=== PATIENT | female | born 1935 | race Caucasian/White ===

== ENCOUNTER 2024-01-06 18:44 | Inpatient (IN) | payer MEDICARE, OTHER, SELFPAY ==
[2024-01-06] VITALS (15 sets, daily range): BP systolic 148–194; BP diastolic 72–95; PULSE 82–97; RESP 14–24; TEMP 36–36.6; O2SAT 88–96; BMI 19.0
--- NOTE | 2024-01-06 18:59 | ED.GENADULT ---
HPI - General Adult General Chief complaint: Shortness of Breath/Dyspnea Stated complaint: SOB, Failure to thrive Time Seen by Provider: 01/06/24 18:44 History of Present Illness HPI narrative: 88-year-old female with history of hypertension, AFib on Eliquis presents by EMS from home for generalized weakness and not take care for self. Patient has had somewhat complicated medical course recently. On 11/25 patient was transferred from an outside hospital to [facility] for ground level fall with subdural hemorrhage. Patient was managed non operatively. Hospital course complicated by COVID and bacterial pneumonia requiring high-flow nasal cannula. At some point during her hospital stay patient also had left upper lobe segmental PE and she was transitioned from home Eliquis to Lovenox. Swallow study at outside hospital notable for silent aspiration. Patient did not tolerate NG tube and after goals of care discussion with and palliative Care, it was decided that p.o. diet despite risk of aspiration was more in line with the patient's goals of care. At the end of patient's hospital stay it was determined that patient would benefit most from inpatient rehabilitation, however after discussion with patient and her they refused inpatient care and wanted to go home, stating that she would have full-time support from family and neighbors. Yesterday patient had another ground level fall and was taken to [facility] emergency department. At that time patient was found to have fracture of L2 anterosuperior endplate and acute fractures of 9th and 10th rib fractures, however patient had no pain in the location of the rib fractures. Per review of [facility] ER note patient again declined rehab and hospitalization and requested to go home with home health.. Patient did have saturations of 93-94% in the hospital. Today, home health came to evaluate the patient in deemed her living situation to be unsafe. 911 was called and patient brought to [facility] for assessment. Patient is alert, able to answer orientation questions, but does seem to have confusion and extremely poor insight into her current situation. Related Data Home Medications Medication Instructions Recorded Confirmed clonazepam 1 mg tablet 1 mg PO HS ##0 02/27/17 01/06/24 potassium chloride 10 mEq 10 meq PO BID ##0 02/27/17 01/06/24 tablet,extended release (Klor-Con) amiodarone 200 mg tablet 200 mg PO Q OTHER DAY 01/06/24 01/06/24 amlodipine 10 mg tablet 10 mg PO DAILY 01/06/24 01/06/24 apixaban 5 mg tablet (Eliquis) 5 mg PO BID 01/06/24 01/06/24 fluoxetine 20 mg capsule 20 mg PO DAILY 01/06/24 01/06/24 levothyroxine 100 mcg tablet 100 mcg PO DAILY 01/06/24 01/06/24 metoprolol succinate 50 mg 50 mg PO DAILY 01/06/24 01/06/24 tablet,extended release 24 hr Allergies Allergy/AdvReac Type Severity Reaction Status Date / Time adhesive tape [ADHESIVE TAPE] Allergy Intermediate ITCHY Verified 01/07/24 01:56 PAPER/SILK TAPE OK Latex, Natural Rubber Allergy Intermediate PT UNSURE Verified 01/07/24 01:56 [LATEX, NATURAL RUBBER] MAY CAUSE ITCHING, RASH celecoxib [From CELEBREX] AdvReac Severe FLU-LIKE Verified 01/07/24 01:56 SYMPTOMS Patient History Medical History (Updated 01/07/24 @ 02:03 by Geronimo Wan MD) Anxiety and depression Impaired mobility and activities of daily living PAF (paroxysmal atrial fibrillation) Hypothyroidism Social History household members: spouse Smoking Status: Never smoker Exam Initial Vital Signs Initial Vital Signs: Vital Signs Temperature 97.8 F 01/06/24 18:45 Pulse Rate 97 H 01/06/24 18:45 Respiratory Rate 18 01/06/24 18:45 Blood Pressure 194/95 H 01/06/24 18:45 Pulse Oximetry 88 L 01/06/24 18:45 Oxygen Delivery Method Room Air 01/06/24 18:45 Const: Awake, alert, debilitated, frail, appears chronically unwell Cardiac: regular rate, regular rhythm RESP: unlabored, coarse breath sounds bilateral bases GI: Soft, nontender, nondistended, no rebound, no guarding MSK: No edema, full range of motion, pulses equal Skin: Warm, Dry, intact, no rashes Neuro: AO x2, CN II-XII grossly intact, moves all extremities Course Orders Ordered: Acetaminophen (Acetaminophen 325 Mg Tablet) 650 mg PO Q6H PRN PRN Reason: Fever/Mild Pain (1-3) Last Admin: 01/07/24 08:35 Dose: 650 mg Documented By: NAWAF Amiodarone HCl (Amiodarone 200 Mg Tablet) 200 mg PO Q48H [facility] Last Admin: 01/07/24 10:01 Dose: 200 mg Documented By: NAWAF Amlodipine Besylate (Amlodipine 5 Mg Tablet) 10 mg PO DAILY [facility] Last Admin: 01/07/24 08:36 Dose: 10 mg Documented By: NAWAF Apixaban (Apixaban 5 Mg Tablet) 2.5 mg PO BID [facility] Clonazepam (Clonazepam 0.5 Mg Tablet) 1 mg PO BEDTIME [facility] Last Admin: 01/07/24 02:54 Dose: Not Given Documented By: ELENA Fluoxetine HCl (Fluoxetine 20 Mg Capsule) 20 mg PO DAILY [facility] Last Admin: 01/07/24 08:36 Dose: 20 mg Documented By: NAWAF Piperacillin Sod/Tazobactam (Sod 3.375 gm/ Sodium Chloride) 100 mls @ 25 mls/hr IV Q8H [facility] Last Admin: 01/07/24 17:38 Dose: 25 mls/hr Documented By: NAWAF Levothyroxine Sodium (Levothyroxine 100 Mcg Tablet) 100 mcg PO DAILY@0600 [facility] Metoprolol Succinate (Metoprolol Er 50 Mg Tablet) 50 mg PO DAILY [facility] Last Admin: 01/07/24 08:36 Dose: 50 mg Documented By: NAWAF Naloxone HCl (Naloxone 0.4 Mg/Ml Vial) 0.2 mg IV Q2MIN PRN PRN Reason: Opiate Reversal Oxycodone HCl (Oxycodone Ir 5 Mg Tablet) 5 mg PO Q4HR PRN PRN Reason: Pain, Moderate (4-6) Last Admin: 01/07/24 13:39 Dose: 5 mg Documented By: LATANYA Discontinued Medications Apixaban (Apixaban 5 Mg Tablet) 5 mg PO BID [facility] Last Admin: 01/07/24 08:35 Dose: 5 mg Documented By: NAWAF Sodium Chloride (Normal Saline 0.9%) 1,000 mls @ 1,000 mls/hr IV BOLUS ONE Stop: 01/06/24 19:57 Last Infusion: 01/06/24 20:27 Dose: Infused Documented By: Admin: 01/06/24 19:12 Dose: 1,000 mls/hr Documented By: ANDREZ Ceftriaxone Sodium 1,000 mg/ (Sodium Chloride) 100 mls @ 200 mls/hr IV NOW ONE Stop: 01/06/24 19:28 Last Infusion: 01/06/24 20:27 Dose: Infused Documented By: Admin: 01/06/24 19:54 Dose: 200 mls/hr Documented By: ANDREZ Azithromycin 500 mg/ Dextrose 250 mls @ 250 mls/hr IV NOW ONE Stop: 01/06/24 19:28 Last Infusion: 01/06/24 21:45 Dose: Infused Documented By: Admin: 01/06/24 20:32 Dose: 250 mls/hr Documented By: ANDREZ Azithromycin 500 mg/ Dextrose 250 mls @ 250 mls/hr IV Q24H ROBERT Ceftriaxone Sodium 1,000 mg/ (Sodium Chloride) 100 mls @ 200 mls/hr IV Q24H ROBERT Piperacillin Sod/Tazobactam (Sod 4.5 gm/ Sodium Chloride) 100 mls @ 200 mls/hr IV NOW ONE Stop: 01/07/24 13:29 Last Admin: 01/07/24 13:39 Dose: 200 mls/hr Documented By: LATANYA Levothyroxine Sodium (Levothyroxine 100 Mcg Tablet) 100 mcg PO DAILY [facility] Last Admin: 01/07/24 08:36 Dose: 100 mcg Documented By: NAWAF Oxycodone HCl (Oxycodone Ir 5 Mg Tablet) 5 mg PO NOW ONE Stop: 01/06/24 21:55 Last Admin: 01/06/24 22:05 Dose: 5 mg Documented By: ANDREZ Vital Signs Vital signs: Vital Signs - 8 hr 01/06/24 18:45 01/06/24 18:46 01/06/24 18:49 Temperature 97.8 F Pulse Rate 97 H 96 H Respiratory Rate 18 Blood Pressure 194/95 H 194/95 H Pulse Oximetry 88 L 91 Oxygen Delivery Method Room Air Oxygen Flow Rate 01/06/24 18:49 01/06/24 18:51 01/06/24 18:51 Temperature Pulse Rate 97 H 96 H Respiratory Rate Blood Pressure 185/94 H Pulse Oximetry 90 L 93 Oxygen Delivery Method Nasal Cannula Oxygen Flow Rate 2 01/06/24 19:00 01/06/24 19:30 01/06/24 20:00 Temperature Pulse Rate 90 87 88 Respiratory Rate 14 15 24 Blood Pressure Pulse Oximetry 93 96 93 Oxygen Delivery Method Nasal Cannula Nasal Cannula Nasal Cannula Oxygen Flow Rate 2 2 2 01/06/24 20:05 01/06/24 20:05 01/06/24 20:30 Temperature Pulse Rate 86 Respiratory Rate 20 Blood Pressure 181/84 H 166/81 H Pulse Oximetry 93 Oxygen Delivery Method Nasal Cannula Oxygen Flow Rate 2 01/06/24 20:30 01/06/24 21:00 01/06/24 21:00 Temperature Pulse Rate 91 H 93 H Respiratory Rate 18 22 Blood Pressure 158/74 H Pulse Oximetry 95 95 Oxygen Delivery Method Nasal Cannula Nasal Cannula Oxygen Flow Rate 2 2 Medical Decision Making Lab Data 01/07/24 03:35 01/07/24 03:35 Labs: Lab Results 01/06/24 Range/Units 19:07 WBC 14.3 H (4.5-11.0) X10^3/uL RBC 4.40 (4.0-5.2) X10^6/uL Hgb 13.4 (12.0-16.0) g/dL Hct 40.5 (36-46) % MCV 92.1 (80-100) fL MCH 30.5 (26-34) PG MCHC 33.1 (30-36) % RDW 16.1 H (11.6-14.8) % Plt Count 257 (150-400) X10^3/uL Neut % (Auto) 87.6 H (50-75) % Lymph % (Auto) 6.2 L (25-40) % [place] % (Auto) 4.8 (3-14) % Eos % (Auto) 0.9 L (2-4) % Baso % (Auto) 0.5 (0-2) % Neut # (Auto) 81619 H (4745-2656) /uL Lymph # (Auto) 900 L (3167-4464) /uL [place] # (Auto) 700 (0-900) /uL Eos # (Auto) 100 (0-450) /uL Baso # (Auto) 100 (0-100) /uL PT 12.4 (9.4-12.5) SECONDS INR 1.1 (0.9-1.3) Sodium 134 L (137-145) mmol/L Potassium 4.3 (3.4-5.1) mmol/L Chloride 101 (98-107) mmol/L Carbon Dioxide 26 (22-32) mmol/L BUN 16 (7-17) mg/dL Creatinine 0.64 (0.52-1.04) mg/dL Estimated GFR > 60 (>60) mL/min BUN/Creatinine Ratio 25.0 H (6-22) Glucose 96 (80-110) mg/dL Calcium 8.8 (8.4-10.2) mg/dL Total Bilirubin 0.6 (0.2-1.3) mg/dL AST 28 (14-36) IU/L ALT 36 H (<35) IU/L Alkaline Phosphatase 63 (38-126) U/L Total Creatine Kinase 27 L (30-135) U/L Troponin I < 0.012 (0.01-0.034) ng/mL NT-Pro-B Natriuret Pep 396 (<450) pg/mL Total Protein 6.5 (6.3-8.2) g/dL Albumin 3.5 (3.5-5.0) g/dL Globulin 3.0 (1.7-4.1) g/dL Albumin/Globulin Ratio 1.2 (1.0-2.8) Procalcitonin 0.083 (<0.5) ng/mL Imaging Data Chest x-ray: Radiologist's Impression: PROCEDURE: XR CHEST 1V INDICATIONS: low O2 sats TECHNIQUE: One view of the chest was acquired. COMPARISON: [facility], CHEST 2 VIEW, 04/01/2017, 16:20. [facility], CHEST 1 VIEW, 03/19/2017, 13:37. FINDINGS: Surgical changes and devices: ACDF. Lungs and pleura: Prominent lung volumes. Coarsened lung markings. No silhouetting. No pleural effusions or pneumothorax. Mediastinum: Mediastinal contours appear normal. Heart size is normal. Bones and chest wall: No suspicious bony lesions. Overlying soft tissues appear unremarkable. IMPRESSION: Coarsened lung markings. Prominent lung volumes. Differential diagnosis including fibrosis, pulmonary edema, mild bilateral infectious/inflammatory etiology. Dictated by: Panfilo Webb M.D. on 01/06/2024 at 19:59 Approved by: Panfilo Webb M.D. on 01/06/2024 at 20:03 [facility] Narrative Medical decision making narrative: Chronically unwell appearing patient with complicated previous hospitalization course including subarachnoid hemorrhage, silent aspiration. Currently denying complaints but overall looks unwell. O2 saturations on RA 88%, placed on nasal cannula. Records from [facility] as well as discharge summary from [facility] view reviewed to help guide decision-making. Chest x-ray paresthesias shows bilateral pneumonia. Daughter and are now at bedside, patient was now stating that she was open to hospitalization. Daughter states that it has been very frustrating working with both her father and her mother because they has been resistant to placement, however it was increasingly clear that they are unable to care for themselves and the patient's needs at home. Antibiotics have been administered, patient remains on supplemental nasal cannula. Plan to admit for further treatment of her condition. Advised that patient's condition with recurrent silent aspiration pneumonia we will likely only continue and gradually worsened. Discharge Plan Departure Patient Disposition: Admitted as Observation Clinical Impression: Acute hypoxemic respiratory failure, Recurrent aspiration pneumonia, Adult failure to thrive Admit Date/Time: 01/06/24 21:28 Admit Provider: Geronimo Oh
[2024-01-06] MEDS: SODIUM CHLORIDE 0.9% 1,000 ML 1000 ML IV (19:12)
--- NOTE | 2024-01-06 19:16 | EKG_ITS ---
[address] [address] Test Date: 2024-01-06 Pat Name: Nallely Hung Department: [facility] Room: Gender: Female [employer]ellite T[employer] Technician: IDALMIS : 1935 Requested By: Order Number: [id number] Reading MD: Ramsey Loomis MD Measurements Intervals [place] Rate: 90 P: 64 PA: 124 QRS: 71 QRSD: 84 T: 73 QT: 358 QTc: 437 Interpretive Statements Normal sinus rhythm Electronically Signed On 01-07-2024 8:36:27 PDT by Ramsey Loomis MD
[2024-01-06 19:18] LABS: Add Manual Diff / Slide Review NO; Basophils Absolute Auto 100 /uL (0-100); Basophils Percent Auto 0.5 % (0-2); Eosinophils Absolute Auto 100 /uL (0-450); Eosinophils Percent Auto 0.9 % (2-4); Hematocrit 40.5 % (36-46); Hemoglobin 13.4 g/dL (12.0-16.0); Lymphocytes Absolute Auto 900 /uL (1100-4500); Lymphocytes Percent Auto 6.2 % (25-40); Mean Corpuscular HGB Conc 33.1 % (30-36); Mean Corpuscular Hemoglobin 30.5 PG (26-34); Mean Corpuscular Volume 92.1 fL (80-100); Monocytes Absolute Auto 700 /uL (0-900); Monocytes Percent Auto 4.8 % (3-14); Neutrophils Absolute Auto 12500 /uL (1500-7000); Neutrophils Percent Auto 87.6 % (50-75); Platelet Count 257 X10^3/uL (150-400); Red Cell Distribution Width 16.1 % (11.6-14.8); White Blood Cell Count 14.3 X10^3/uL (4.5-11.0)
[2024-01-06 19:26] LABS: INR 1.1 (0.9-1.3); Prothrombin Time 12.4 SECONDS (9.4-12.5)
[2024-01-06 19:36] LABS: Alanine Aminotransferase 36 IU/L (<35); Albumin 3.5 g/dL (3.5-5.0); Albumin Globulin Ratio 1.2 (1.0-2.8); Alkaline Phosphatase 63 U/L (38-126); Aspartate Aminotransferase 28 IU/L (14-36); Bilirubin Total 0.6 mg/dL (0.2-1.3); Blood Urea Nitrogen 16 mg/dL (7-17); Calcium 8.8 mg/dL (8.4-10.2); Carbon Dioxide 26 mmol/L (22-32); Chloride 101 mmol/L (98-107); Creatine Kinase 27 U/L (30-135); Estimated Glomerular Filt Rate > 60 mL/min (>60); Glucose 96 mg/dL (80-110); HEMOLYSIS 50 (0-50); Potassium 4.3 mmol/L (3.4-5.1); Sodium 134 mmol/L (137-145); Total Protein 6.5 g/dL (6.3-8.2)
[2024-01-06 19:47] LABS: NT-proBNP (BNP-Adult 18+) 396 pg/mL (<450); Troponin I < 0.012 ng/mL (0.01-0.034)
[2024-01-06 19:52] LABS: Procalcitonin 0.083 ng/mL (<0.5)
[2024-01-06] MEDS: cefTRIAXone 1,000 MG in SODIUM CHLORIDE 0.9% 100 ML 200 MG IV (19:54)
[2024-01-06] MEDS: AZITHROMYCIN 500 MG in DEXTROSE 5% IN WATER 250 ML 250 MG IV (20:32)
[2024-01-06] MEDS: OXYCODONE IR 5 MG TABLET PO (22:05)
[2024-01-07] VITALS (7 sets, daily range): BP systolic 131–163; BP diastolic 65–83; PULSE 80–87; RESP 14–93; TEMP 36.4–36.7; O2SAT 20–97
--- NOTE | 2024-01-07 01:49 | PM.HP.1 ---
History of Present Illness History of Present Illness Chief complaint: SOB, Failure to thrive Narrative: 88 y/o with PMH of A-fib, HTN, Hypothyroidism, recent hospitalization in [place], 1.5 months ago, with SDH, aspiration PNA, PE, who was discharged home as she refused SNF. Yesterday she sustained ground level fall and was taken to [facility] emergency department. At that time patient was found to have fracture of L2 anterosuperior endplate and acute fractures of 9th and 10th ribs. Per review of [facility] ER note patient again declined rehab and hospitalization and requested to go home with home health.. Patient did have saturations of 93-94% in the hospital.Today, home health came to evaluate the patient in deemed her living situation to be unsafe. 911 was called and patient brought to [facility] for assessment. On admission encephalopathic with evidence of pneumonia. [facility] Medical History (Updated 01/07/24 @ 02:03 by Geronimo Wan MD) Anxiety and depression Impaired mobility and activities of daily living PAF (paroxysmal atrial fibrillation) Hypothyroidism Social History Smoking Status: Never smoker Meds Home Medications and Allergies Home Medications Medication Instructions Recorded Confirmed Type clonazepam 1 mg tablet 1 mg PO HS ##0 02/27/17 01/06/24 History potassium chloride 10 mEq 10 meq PO BID ##0 02/27/17 01/06/24 History tablet,extended release (Klor-Con) amiodarone 200 mg tablet 200 mg PO Q OTHER DAY 01/06/24 01/06/24 History amlodipine 10 mg tablet 10 mg PO DAILY 01/06/24 01/06/24 History apixaban 5 mg tablet (Eliquis) 5 mg PO BID 01/06/24 01/06/24 History fluoxetine 20 mg capsule 20 mg PO DAILY 01/06/24 01/06/24 History levothyroxine 100 mcg tablet 100 mcg PO DAILY 01/06/24 01/06/24 History metoprolol succinate 50 mg 50 mg PO DAILY 01/06/24 01/06/24 History tablet,extended release 24 hr Allergies Allergy/AdvReac Type Severity Reaction Status Date / Time adhesive tape [ADHESIVE TAPE] Allergy Intermediate ITCHY Verified 01/07/24 01:56 PAPER/SILK TAPE OK Latex, Natural Rubber Allergy Intermediate PT UNSURE Verified 01/07/24 01:56 [LATEX, NATURAL RUBBER] MAY CAUSE ITCHING, RASH celecoxib [From CELEBREX] AdvReac Severe FLU-LIKE Verified 01/07/24 01:56 SYMPTOMS Review of Systems Review of Systems Narrative: unable to participate with ROS, encephalopathic Exam Vital Signs (past 8 hours): - 01/06/24 18:45 01/06/24 18:46 01/06/24 18:49 Temperature 97.8 F Pulse Rate 97 H 96 H Respiratory Rate 18 Blood Pressure 194/95 H 194/95 H Pulse Oximetry 88 L 91 Oxygen Delivery Method Room Air Oxygen Flow Rate Fraction of Inspired Oxygen 01/06/24 18:49 01/06/24 18:51 01/06/24 18:51 Temperature Pulse Rate 97 H 96 H Respiratory Rate Blood Pressure 185/94 H Pulse Oximetry 90 L 93 Oxygen Delivery Method Nasal Cannula Oxygen Flow Rate 2 Fraction of Inspired Oxygen 01/06/24 19:00 01/06/24 19:30 01/06/24 20:00 Temperature Pulse Rate 90 87 88 Respiratory Rate 14 15 24 Blood Pressure Pulse Oximetry 93 96 93 Oxygen Delivery Method Nasal Cannula Nasal Cannula Nasal Cannula Oxygen Flow Rate 2 2 2 Fraction of Inspired Oxygen 01/06/24 20:05 01/06/24 20:05 01/06/24 20:30 Temperature Pulse Rate 86 Respiratory Rate 20 Blood Pressure 181/84 H 166/81 H Pulse Oximetry 93 Oxygen Delivery Method Nasal Cannula Oxygen Flow Rate 2 Fraction of Inspired Oxygen 01/06/24 20:30 01/06/24 21:00 01/06/24 21:00 Temperature Pulse Rate 91 H 93 H Respiratory Rate 18 22 Blood Pressure 158/74 H Pulse Oximetry 95 95 Oxygen Delivery Method Nasal Cannula Nasal Cannula Oxygen Flow Rate 2 2 Fraction of Inspired Oxygen 01/06/24 21:30 01/06/24 21:30 01/06/24 21:59 Temperature 96.8 F L Pulse Rate 94 H 90 Respiratory Rate 20 18 Blood Pressure 150/72 H 154/74 H Pulse Oximetry 94 94 Oxygen Delivery Method Nasal Cannula Oxygen Flow Rate 2 2 Fraction of Inspired Oxygen 01/06/24 22:00 01/06/24 22:00 01/06/24 22:31 Temperature 97.4 F L Pulse Rate 91 H 82 Respiratory Rate 20 20 Blood Pressure 152/77 H 148/75 H Pulse Oximetry 95 92 Oxygen Delivery Method Nasal Cannula Oxygen Flow Rate 2 2 Fraction of Inspired Oxygen 01/06/24 22:42 Temperature Pulse Rate 82 Respiratory Rate Blood Pressure Pulse Oximetry 92 Oxygen Delivery Method Nasal Cannula Oxygen Flow Rate 2 Fraction of Inspired Oxygen 28 Fraction of Inspired Oxygen 28 SaO2/FiO2 Ratio 328 Oxygen Delivery Method Nasal Cannula Oxygen Flow Rate 2 Const Other: drowsy, in no distress HENMT Other: normocephalic Resp Other: coarse rhonchi Cardio Other: RRR GI Other: not distended Psych Other: encephalopathic Objective ECG Impression: NSR Labs 01/06/24 19:07 01/06/24 19:07 Labs: Laboratory Results - last 24 hr 01/06/24 19:07 WBC 14.3 H RBC 4.40 Hgb 13.4 Hct 40.5 MCV 92.1 MCH 30.5 MCHC 33.1 RDW 16.1 H Plt Count 257 Neut % (Auto) 87.6 H Lymph % (Auto) 6.2 L [place] % (Auto) 4.8 Eos % (Auto) 0.9 L Baso % (Auto) 0.5 Neut # (Auto) 66349 H Lymph # (Auto) 900 L [place] # (Auto) 700 Eos # (Auto) 100 Baso # (Auto) 100 PT 12.4 INR 1.1 Sodium 134 L Potassium 4.3 Chloride 101 Carbon Dioxide 26 BUN 16 Creatinine 0.64 Estimated GFR > 60 BUN/Creatinine Ratio 25.0 H Glucose 96 Calcium 8.8 Total Bilirubin 0.6 AST 28 ALT 36 H Alkaline Phosphatase 63 Total Creatine Kinase 27 L Troponin I < 0.012 NT-Pro-B Natriuret Pep 396 Total Protein 6.5 Albumin 3.5 Globulin 3.0 Albumin/Globulin Ratio 1.2 Procalcitonin 0.083 Assessment & Plan Assessment and plan (1) Acute hypoxemic respiratory failure: Status: Acute (2) Recurrent aspiration pneumonia: Status: Acute (3) Adult failure to thrive: Status: Acute (4) Hypertension: Status: Acute (5) Hypothyroidism: Status: Acute (6) PAF (paroxysmal atrial fibrillation): Status: Acute (7) Impaired mobility and activities of daily living: Status: Acute (8) Compression fracture of L2 lumbar vertebra: Status: Acute (9) Anxiety and depression: Status: Acute Assessment & Plan narrative: Recurrent PNA, Acute Metabolic Encephalopathy - STATISTICAL CONSULTANT assessment - Raheem Acute Hypoxemic respiratory Failure - Oxygen prn FTT, Recurrent Falls, Impaired Mobvility and ADLs - PT, OT - placement L2 Superior endplate # - pain management HTN, PAF - Norvasc, Metoprolol, Amiodarone, Eliquis Hypothyroidism - levothyroxine Anxiety / Depression - Prozac, Clonazepam Time-Based Coding :: [TOTAL MINUTES] spent with patient and on the chart (including review of chart, obtaining history, exam, reviewing outside data, placing orders, documenting exam and treatment plan, and counseling patient) on [DATE].
[2024-01-07 05:57] LABS: BUN Creatinine Ratio 27.3 (6-22); Blood Urea Nitrogen 15 mg/dL (7-17); Calcium 8.3 mg/dL (8.4-10.2); Carbon Dioxide 28 mmol/L (22-32); Chloride 101 mmol/L (98-107); Estimated Glomerular Filt Rate > 60 mL/min (>60); Glucose 110 mg/dL (80-110); HEMOLYSIS < 15 (0-50); Sodium 133 mmol/L (137-145)
[2024-01-07 06:14] LABS: Add Manual Diff / Slide Review NO; Basophils Absolute Auto 100 /uL (0-100); Basophils Percent Auto 0.6 % (0-2); Eosinophils Absolute Auto 100 /uL (0-450); Hematocrit 36.2 % (36-46); Lymphocytes Absolute Auto 1000 /uL (1100-4500); Lymphocytes Percent Auto 7.3 % (25-40); Mean Corpuscular HGB Conc 33.2 % (30-36); Mean Corpuscular Hemoglobin 30.7 PG (26-34); Mean Corpuscular Volume 92.2 fL (80-100); Monocytes Absolute Auto 600 /uL (0-900); Monocytes Percent Auto 4.8 % (3-14); Neutrophils Absolute Auto 11300 /uL (1500-7000); Neutrophils Percent Auto 86.3 % (50-75); Platelet Count 224 X10^3/uL (150-400); Red Blood Cell Count 3.92 X10^6/uL (4.0-5.2); Red Cell Distribution Width 16.1 % (11.6-14.8); White Blood Cell Count 13.2 X10^3/uL (4.5-11.0)
--- NOTE | 2024-01-07 08:08 | PM.PN.1 ---
Subjective Subjective Interval history: This is an 88 year old female with recent admission to [facility] for a SDH complicated by respiratory failure due to COVID-19 and probable chronic aspiration. Please see discharge summary noted below. She was admitted for failure to thrive, as well as acute respiratory failure from presumed pneumonia. Today the patient feels improved. She very much wants to return home again. Case management today however received an email from home health RN with concern about the safety of patient's home environment and the ability of the spouse to assist with patient. The patient reports ongoing swallowing difficulties since neck surgery, knows behavioral techniques to follow. She is willing to work with therapies today. Discussed with FAMILY MEDICINE PHYSICIAN who recommended dysphagia diet, she did better than expected, but did recommend barium swallow. She reports that she left rehab when they were no longer working with her to return home. Please see discharge summary from [facility] Transferred to [facility] for neurosurgical evaluation 11/25 from OSH where she was admitted for syncopal GLF c/b R SDH. She was initially admitted to neurosurgery but managed nonoperatively and was transferred to inpatient rehab 12/02. Hospital course was complicated by fever to 38.1 12/15 and was subsequently found to be COVID-positive and was started on remdesivir, but developed acute hypoxemic respiratory failure with desats to the 80s and was placed on venturi mask with FiO2 50%. Further workup was c/f pneumonia and she was started on Ceftriaxone and azithromycin, but had worsening oxygen requirements so was transferred to the MICU 12/16 for HFNC and abx broadened to vancomycin + cefepime. CTA was also notable for KARINA segmental PE for which she was transitioned from home apixaban (for afib) to lovenox. Her pneumonia was felt likely secondary to aspiration, and further evaluation with FAMILY MEDICINE PHYSICIAN was notable for 12/18 VFSS with silent aspiration. She was initially trialed on NGT, however she did not tolerate this in the setting of ongoing delirium, and following [facility] discussion with Yann and palliative care, it was decided that PO diet despite risk of aspiration was more in line with patient's GOC. She completed pneumonia and COVID treatment and was successfully weaned to NC, and felt safe to transition to Acute Care 12/23. She remained stable on the floor, with SpO2 to 95-98% on room air, but had significant delirium, which improved with standard delirium precautions. ? Although medicine and pmr feel that inpatient rehabilitation would be ideal, shared decision making with Nallely and her led us to decide that optimizing her home in addition to home health would best serve the patient's goals and desires. Nallely was able to state that she understands the benefits of inpatient rehabilitation (re: prolonged, intensive therapies across multiple modalities) and risks of discharging home (including injury and further prolonged hospitalization). Nallely stated that for the next two weeks, she would have inspector timers support from family and neighbors, and was willing to revisit the idea of inpatient therapy after returning home. Nallely stated that in the next 2 weeks, she will have inspector timers support and she is not reliant on her (knowing his ongoing health issues including renal cancer), and is able to have her niece as well as neighbors care for her. She understands that her multi-disciplinary team recommends inpatient rehabilitation and relay concerns re: safety at home, as well as risks for prolonged hospitalization in the case of accidental falls/injuries. Amenable to home health and potentially, discussing inpatient rehabilitation after a brief stay at home. Patient is agreeable to remain in the hospital while PT/OT/HH try to optimize her home environment and provide any needed supplies/equipment. Exam Vital Signs (past 8 hours): - 01/07/24 06:00 Temperature 97.7 F Pulse Rate 86 Respiratory Rate 20 Blood Pressure 148/72 H Pulse Oximetry 96 Oxygen Flow Rate 2 Fraction of Inspired Oxygen 28 SaO2/FiO2 Ratio 328 Oxygen Delivery Method Nasal Cannula Oxygen Flow Rate 2 Narrative Exam Narrative: Gen: No acute distress, desat to 87% on RA today, improved on 1L o2. CV: RRR no m/r/g Pulm; CTA b/l ABD; S NT ND Ext: No edema Neuro: Alert, oriented to person, place, and month / year. Objective Labs 01/07/24 03:35 01/07/24 03:35 Labs: Laboratory Results - last 24 hr 01/06/24 01/07/24 19:07 03:35 WBC 14.3 H 13.2 H RBC 4.40 3.92 L Hgb 13.4 12.0 Hct 40.5 36.2 MCV 92.1 92.2 MCH 30.5 30.7 MCHC 33.1 33.2 RDW 16.1 H 16.1 H Plt Count 257 224 Neut % (Auto) 87.6 H 86.3 H Lymph % (Auto) 6.2 L 7.3 L Millard % (Auto) 4.8 4.8 Eos % (Auto) 0.9 L 1.0 L Baso % (Auto) 0.5 0.6 Neut # (Auto) 11282 H 18058 H Lymph # (Auto) 900 L 1000 L Millard # (Auto) 700 600 Eos # (Auto) 100 100 Baso # (Auto) 100 100 PT 12.4 INR 1.1 Sodium 134 L 133 L Potassium 4.3 4.0 Chloride 101 101 Carbon Dioxide 26 28 BUN 16 15 Creatinine 0.64 0.55 Estimated GFR > 60 > 60 BUN/Creatinine Ratio 25.0 H 27.3 H Glucose 96 110 Calcium 8.8 8.3 L Total Bilirubin 0.6 AST 28 ALT 36 H Alkaline Phosphatase 63 Total Creatine Kinase 27 L Troponin I < 0.012 NT-Pro-B Natriuret Pep 396 Total Protein 6.5 Albumin 3.5 Globulin 3.0 Albumin/Globulin Ratio 1.2 Procalcitonin 0.083 [facility] Medical History (Updated 01/07/24 @ 02:03 by Geronimo Wan MD) Anxiety and depression Impaired mobility and activities of daily living PAF (paroxysmal atrial fibrillation) Hypothyroidism Social History household members: spouse Smoking Status: Never smoker Assessment & Plan Assessment & Plan narrative: #Acute (possibly on chronic) hypoxic respiratory therapy likely due to bacterial, aspiration pneumonia - FAMILY MEDICINE PHYSICIAN evaluation ordered, appreciate recommendations. Diet changed to dyspagia per their recommendations. Discussed with speech therapist today. - continue zosyn - Silent aspiration on VFSS 12/18 and was strict NPO. 12/19 Yann consented for short term NGT for enteral access for medication delivery. However, for quality of life, patient values diet vs risk of aspiration. FAMILY MEDICINE PHYSICIAN recommended 1:1 feeds at that time. #possible acute cystitis vs asymptomatic bacteruria. - UA reflexed for culture, continue zosyn as above. #acute metabolic encephalopathy, vs chronic cognitive impairment.vs toxic encephalopathy - seemingly improved today, but unclear if due to medications, above infection, or chronic impairment with sundowning / delirium. - watch closely for oversedation at night with clonzepam but can continue, was on higher dose previously. - continue PT/OT and check SLUMS #History of pAfib - Continue home amiodarone 200mg every other day - Home apixaban 5mg BID - Home metoprolol succinate 50mg daily ? #Hypothyroidism - Levothyroxine 100 mcg daily #HTN -continue home amlodipine and metoprolol. ? #Depression #Insomnia Holding clonazepam in setting of lethargy. - Home fluoxetine 20 mg daily - ok to continue home clonazepam 1 mg nightly, monitor for worsening encephalopathy. Code: Full, surrogate is patient's spouse (given history above this may need to be revisited), alternatively has daughter visiting DVT: on apixaban Dispo: ideally discharge to SNF, if patient refuses unclear given report from home health nurse noted above. Additional history was obtained via extensive review of patient's outside records, discussion with case management and review of home health nurse documentation. Additionally reviewed with physical, occupational, and speech therapists. Time-Based Coding :: [TOTAL MINUTES] spent with patient and on the chart (including review of chart, obtaining history, exam, reviewing outside data, placing orders, documenting exam and treatment plan, and counseling patient) on [DATE].
[2024-01-07] MEDS: APIXABAN 5 MG TABLET PO (08:35)
[2024-01-07] MEDS: ACETAMINOPHEN 325 MG TABLET 650 MG PO (08:35)
[2024-01-07] MEDS: FLUoxetine 20 MG CAPSULE PO (08:36)
[2024-01-07] MEDS: LEVOTHYROXINE 100 MCG TABLET PO (08:36)
[2024-01-07] MEDS: METOPROLOL ER 50 MG TABLET PO (08:36)
[2024-01-07] MEDS: AMLODIPINE 5 MG TABLET 10 MG PO (08:36)
[2024-01-07] MEDS: AMIODARONE 200 MG TABLET PO (10:01)
--- NOTE | 2024-01-07 10:07 | SLP.IPNOTE ---
Swallowing evaluation attempted at 10:00. Pt very fatigued with NC in place and requesting to sleep. JEWELRY ESTIMATOR reported pt had just returned back to bed. Will re-attempt evaluation later in day as schedule allows. RN notified.
--- NOTE | 2024-01-07 10:34 | OT.IPNOTE ---
Per Hospitalist okay to hold therapy eval today, to recheck on pt tomorrow for appropriateness for OT eval.
--- NOTE | 2024-01-07 11:05 | PT.IIE ---
Current Diagnoses Hypothyroidism, unspecified (01/06/24) Depression, unspecified (01/06/24) Anxiety disorder, unspecified (01/06/24) Essential (primary) hypertension (01/06/24) Paroxysmal atrial fibrillation (01/06/24) Pneumonitis due to inhalation of food and vomit (01/06/24) Acute respiratory failure with hypoxia (01/06/24) Adult failure to thrive (01/06/24) Wedge compression fracture of second lumbar vertebra, initial encounter for closed fracture (01/06/24) Other reduced mobility (01/06/24) Other specified health status (01/06/24) Medical History (Last Updated 01/07/24 @ 02:03 by Geronimo Wan MD) Anxiety and depression Hypothyroidism Impaired mobility and activities of daily living PAF (paroxysmal atrial fibrillation) Physical Therapy Inpatient Evaluation/Re-Eval M1 PT/OT-IP Prior Functional Status Start: 01/07/24 15:51 Freq: NEEDED Status: Active Protocol: Document 01/07/24 11:05 AB (Rec: 01/07/24 16:14 AB [id number]) Medical Review Prior Functional Status Medical History Reviewed Yes Communication able to make needs known Mobility and Gait pt stated that she was modified independent with all mobilities and ambulation using a FWW Activities of Daily Living and IADL's per OT note: Pt states has been able to do her ADL needs. Social History Household Members spouse Living Arrangements House Number of Floors (Floors) One Floor Number of Stairs To Enter/Railing? 5 steps with B rails to enter the house Home Environment Standard Height Toilet,Walk in Shower Home Equipment Front Wheel Walker,Raised Toilet Seat w/Armrests,Hand Held Shower,Grab Bars In Shower Additional Social History Comment pt's daughter staying with pt for ~ 1 week and can assist M2 PT-IP Current Condition Start: 01/07/24 15:51 Freq: NEEDED Status: Active Protocol: Document 01/07/24 11:05 AB (Rec: 01/07/24 16:14 AB [id number]) Physical Therapy Current Condition Current Condition Evaluation Date 01/07/24 Treatment Diagnosis adult FTT; respiratory failure ; h/o falls; difficulty in walking Onset Date 01/06/24 M3 PT-IP Subjective Start: 01/07/24 15:51 Freq: NEEDED Status: Active Protocol: Document 01/07/24 11:05 AB (Rec: 01/07/24 16:14 AB [id number]) Subjective Physical Therapy Visit Type Type Initial Evaluation Visit Start Time 11:05 Visit Stop Time 14:45 Notes pt seen for split visits: 1105 to 1125am and 1410 to 1445 Number of MAINTENANCE FITTER Visits 0 Physical Therapy Visit Comments Patient Comments agreeable to do PT Therapy Pain Assessment Pain When Pain Assessed During Mobility Location Lower back Scale Used pain scale not stated Pain Management Techniques Distraction,Modification of Treatment,Re-positioning, Timing of Activity with Medications M4 PT-IP Mobility and Gait Start: 01/07/24 15:51 Freq: NEEDED Status: Active Protocol: Document 01/07/24 11:05 AB (Rec: 01/07/24 16:14 AB [id number]) PT-Bed Mobility Assessment Rolling Type of Rolling Log Rolling Level of Assist Maximal Assistance,1 Person Assistance Supine to Sit Supine to Sit Maximum Assistance,1 Person Assistance,Bedrails Sit to Supine Sit to Supine Maximum Assistance,Bedrails PT-Transfer Assessment Sit to and From Stand Sit to and from Stand Moderate Assistance,Maximum Assistance,1 Person Assistance ,Use of Upper Extremities Equipment Transfer Assistive Device Gait Belt,Front Wheeled Walker Orthotic/Prosthetic Devices or Brace: No Comments Mobility Comments checked pt this morning for PT eval and was able to obtain PLOF and home set up from pt. after getting info, PT was informed by OT to hold PT per hospitalist. OT informed PT this afternoon that hospitalist wants PT to try to see pt. pt supine in bed and sleepy but agreed to do PT. informed pt regarding L2 fx and educated on back precautions and log roll bed mobility. pt completed log roll supine to sit max A and max cues. pt used bed rail to assist. pt requiring min to mod A for sitting balance on EOB. pt presents with increase retrolean and lateral trunk leaning to the L. pt completed sit to stand mod to max A and max cues. pt ambulated in room ~ 20 ft. using FWW mod A and max cues. pt presents with unsteady gait. pt requested to go back to bed. completed log roll sit to supine max A and max cues with use of bed rail. positioned pt in bed. call light and table placed within reach. Gait Assessment Gait Gait Assistance Required: Moderate Assistance,1 Person Assist Distance (Feet) 20 Able to Maintain Weight Bearing Status Yes During Gait Assistive Devices Assistive Device Gait Belt Orthotic/Prosthetic Devices or Brace: No Gait Deviations General Gait Pattern Ataxic,Decreased Stride Length ,Decreased Feet Clearance Factors Limiting Gait Function Factors Limiting Gait Function Decreased Activity Tolerance, Decreased Strength,Difficulty Following Directions,Limited Range of Motion,Pain,Poor Balance,Poor Safety Awareness PT-Balance Assessment Sitting Balance and Reactions Static Sitting Balance Ability Fair Dynamic Sitting Balance Ability Fair Standing Balance and Reactions Static Standing Balance Ability Fair Dynamic Standing Balance Ability Poor Device Used FWW M5 PT-IP Objective Assessments Start: 01/07/24 15:51 Freq: NEEDED Status: Active Protocol: Document 01/07/24 11:05 AB (Rec: 01/07/24 16:14 AB [id number]) Orientation Orientation/Cognition Level of Alertness Alert Orientation Name Language Function Ability Hard of Hearing Safety Awareness Decreased Safety Awareness Memory Description Short Term Impaired,Inspector Health Care Facilities Impaired Gross Range of Motion Lower Extremity ROM Assessment Within Functional Limits Strength Lower Extremity Strength Assessment Right Impaired Hip 4-/5 Knee 3+/5 Sensation Assessment Sensation Gross Sensation WNL Muscle Tone Muscle Tone WNL Yes M6 PT-IP Treatment Start: 01/07/24 15:51 Freq: NEEDED Status: Active Protocol: Document 01/07/24 11:05 AB (Rec: 01/07/24 16:14 AB [id number]) Physical Therapy Treatment Education Education Provided Safety M7 PT-IP Assessment and Plan Start: 01/07/24 15:51 Freq: NEEDED Status: Active Protocol: Document 01/07/24 11:05 AB (Rec: 01/07/24 16:14 AB [id number]) PT Summary Assessment and Plan Potential Rehabilitation Potential Fair Status of Condition at Evaluation Evolving Summary Impairments Pain,ROM,Strength,Balance, Coordination,Sensation,Tone, Cognition,Bed Mobility, Transfers,Gait,Activity Tolerance Assessment Summary pt is an 88 y/o F s/p fall. pt admitted for adult failure to thrive and respiratory failure. pt with recent hospitalization at [facility] also after a fall sustaining a subdural hemorrhage. pt went to [facility] few days again after a fall and found to have L2 fx and 9&10 rib fx. pt refused to go to SNF. pt went home and home health services came to evaluate pt and deemed pt's living situation is unsafe and pt was brought to this hospital. pt requiring max A with bed mobility, mod to max A for transfers and mod A using FWW ~ 20 ft. pt with decrease safety awareness affecting mobility level. pt will require SNF rehab to improve overall strength and function. Goals Bed Mobility Goal Standby Assistance Transfer Goal Standby Assistance,Front Wheeled Walker Gait Goal Standby Assistance,Front Wheel Walker Gait Distance 100 Other Goals improve bed mobility, transfers , ambulation using FWW ~ 150 ft mod I up/down 5 steps B rails SBA Days to Meet Goals 10 Frequency of Treatment Frequency Of Treatment Once a Day Treatment Plan Physical Therapy Treatment Plan Bed Mobility Training,Transfer Training,Gait Training, Therapeutic Exercise,Balance Retraining,Discharge Planning, Hot or Cold Pack,Neuromuscular Re-ed,Coordination Retraining ,Manual Therapy Precautions Lumbar Precautions Log Roll,No Twisting,Limit Bending,Lifting Restriction of 10 lbs,Gait Belt above Incisional Area Other Precautions falls Recommendations To Nursing Amount of Assist Needed 1 Person Assist Discharge Recommendations PT Discharge Recommendations SNF Rehab Transportation Needs at Discharge Private Vehicle,Wheelchair/ Cabulance
--- NOTE | 2024-01-07 12:13 | PT-IP ANOTE ---
PT eval received. EMR reviewed. informed nurse to change bedrest order. checked on pt and obtained PLOF and home set up. OT informed PT that hospitalist wants PT to hold eval today. spoke with hospitalist and confirmed PT eval order until clarification on pt's plan of care. will f/u.
[2024-01-07 13:39] LABS: Appearance Urine UA CLEAR; Bilirubin Urine UA NEGATIVE (NEGATIVE); Color Urine UA YELLOW; Glucose Urine UA NEGATIVE (Negative); Ketones Urine UA NEGATIVE (NEGATIVE); Leukocyte Esterase Urine UA NEGATIVE (NEGATIVE); Nitrite Urine UA NEGATIVE (Negative); Occult Blood Urine UA NEGATIVE (Negative); Protein Urine UA TRACE (Negative); Specific Gravity Urine UA 1.025 (1.000-1.035)
[2024-01-07] MEDS: PIPERACILLIN/TAZO 4.5 GM in SODIUM CHLORIDE 0.9% 100 ML IV (13:39)
[2024-01-07] MEDS: OXYCODONE IR 5 MG TABLET PO (13:39)
[2024-01-07 13:51] LABS: Bacteria Urine Few (2-10); Mucus Urine 3+ (Negative); RBC Urine 0-1/HPF (0-5/HPF); Squamous Epithelial Cell Urine 1-5 /HPF (0-5/HPF); Urine Volume 10mL (spun); WBC Urine 1-5/HPF (0-5/HPF)
[2024-01-07 13:52] LABS: Culture Indicated Urine Specimen Cultured
--- NOTE | 2024-01-07 13:54 | CM.DANOTE ---
Initial DCP Assessment Note Pt is a 88 yo female, resident of [place], arrives from home via EMS for generalized weakness, failure to thrive and inability to care for self. Patient INPT due to failure to thrive and PNA. PCP: Brii Flores Payer: [facility]/[employer] Reviewed chart and discussed patient with Dr Guaman who has reviewed patient's records from recent stay at [facility]. Reportedly, patient had been transferred to [facility] 11/25 for neurosurgical evaluation after a GLF and subsequent brain bleed. Patient was able to be managed nonoperatively and was transferred to inpatient rehab 12/02; hospital course was complicated by COVID, resp failure/PNA and delirium. Patient was inevitably discharged home 12/16 w/spouse and referral to [facility] after refusing inpatient rehab at [facility]. Attempted assessment today at bedside and patient busy seeing provider, SORTER PACKER, PT and OT. Introduced self and role and will plan to return later today or tomorrow. Spouse not at bedside yet today. According to SORTER PACKER, patient is an aspiration risk and recommending a swallow study. Patient does not want to be NPO according to SORTER PACKER. Goals of care likely will need to be addressed this admission. Received communication via email from Rajni at [facility] [email or web address] , Office: [phone]; Reportedly, the home health RN that went to admit patient on to services has great concern about the safety of patient's home environment. [facility] JAMES Parada reported that is not physically or cognitively capable of caring for patient and that daughter, visiting from [place] is scheduled to leave Friday. JAMES Sheppard further reports concern that patient and spouse lack the cognitive ability to make safe decisions and lack insight. Asked GUSTAVO Urban, if JAMES Sheppard made an APS report outlining her stated concerns? Awaiting feedback. CM team will need to follow clinical course closely. Further assessment needed. APS report/involvement is anticipated. SCOTT Santa Discharge Planning/Care Management Advanced directive, confirm from FAMILY Start: 01/07/24 01:54 Freq: Q24H Status: Active Protocol: Document 01/07/24 01:54 CT (Rec: 01/07/24 02:31 CT [id number]) Advance Directive, confirm on record Time 00:01 Person contacted Copy received No CM Discharge Assessment Start: 01/07/24 13:51 Freq: Status: Active Protocol: Document 01/07/24 13:51 MIKE (Rec: 01/07/24 13:54 MIKE [id number]) Discharge Planning Assessment Assigned Systems Checkout Mechanic SCOTT Paredes DPOA/Assigned Designee Name Yann Hung, spouse Contact Information [phone] Advance Directives? Yes Advance Directives on File No History Provided By Medical Record Prior Living Arrangements House Household Members spouse Type of transporation used prior to Relies on Others admit Independent with ADL's No Is patient alert and oriented? No Barriers to Discharge Yes Transportation Arrangement TBD Additional Comment TBD
--- NOTE | 2024-01-07 14:10 | PT.IIE ---
Current Diagnoses Hypothyroidism, unspecified (01/06/24) Depression, unspecified (01/06/24) Anxiety disorder, unspecified (01/06/24) Essential (primary) hypertension (01/06/24) Paroxysmal atrial fibrillation (01/06/24) Pneumonitis due to inhalation of food and vomit (01/06/24) Acute respiratory failure with hypoxia (01/06/24) Adult failure to thrive (01/06/24) Wedge compression fracture of second lumbar vertebra, initial encounter for closed fracture (01/06/24) Other reduced mobility (01/06/24) Other specified health status (01/06/24) Medical History (Last Updated 01/07/24 @ 02:03 by Geronimo Wan MD) Anxiety and depression Hypothyroidism Impaired mobility and activities of daily living PAF (paroxysmal atrial fibrillation) Physical Therapy Inpatient Evaluation/Re-Eval M1 PT/OT-IP Prior Functional Status Start: 01/07/24 15:51 Freq: NEEDED Status: Active Protocol: Document 01/07/24 11:05 AB (Rec: 01/07/24 16:14 AB [id number]) Medical Review Prior Functional Status Medical History Reviewed Yes Communication able to make needs known Mobility and Gait pt stated that she was modified independent with all mobilities and ambulation using a FWW Activities of Daily Living and IADL's per OT note: Pt states has been able to do her ADL needs. Social History Household Members spouse Living Arrangements House Number of Floors (Floors) One Floor Number of Stairs To Enter/Railing? 5 steps with B rails to enter the house Home Environment Standard Height Toilet,Walk in Shower Home Equipment Front Wheel Walker,Raised Toilet Seat w/Armrests,Hand Held Shower,Grab Bars In Shower Additional Social History Comment pt's daughter staying with pt for ~ 1 week and can assist M2 PT-IP Current Condition Start: 01/07/24 15:51 Freq: NEEDED Status: Active Protocol: Document 01/07/24 11:05 AB (Rec: 01/07/24 16:14 AB [id number]) Physical Therapy Current Condition Current Condition Evaluation Date 01/07/24 Treatment Diagnosis adult FTT; respiratory failure ; h/o falls; difficulty in walking Onset Date 01/06/24 M3 PT-IP Subjective Start: 01/07/24 15:51 Freq: NEEDED Status: Active Protocol: Document 01/07/24 11:05 AB (Rec: 01/07/24 16:14 AB [id number]) Subjective Physical Therapy Visit Type Type Initial Evaluation Visit Start Time 11:05 Visit Stop Time 14:45 Notes pt seen for split visits: 1105 to 1125am and 1410 to 1445 Number of WAFER CUTTER Visits 0 Physical Therapy Visit Comments Patient Comments agreeable to do PT Therapy Pain Assessment Pain When Pain Assessed During Mobility Location Lower back Scale Used pain scale not stated Pain Management Techniques Distraction,Modification of Treatment,Re-positioning, Timing of Activity with Medications M4 PT-IP Mobility and Gait Start: 01/07/24 15:51 Freq: NEEDED Status: Active Protocol: Document 01/07/24 11:05 AB (Rec: 01/07/24 16:14 AB [id number]) PT-Bed Mobility Assessment Rolling Type of Rolling Log Rolling Level of Assist Maximal Assistance,1 Person Assistance Supine to Sit Supine to Sit Maximum Assistance,1 Person Assistance,Bedrails Sit to Supine Sit to Supine Maximum Assistance,Bedrails PT-Transfer Assessment Sit to and From Stand Sit to and from Stand Moderate Assistance,Maximum Assistance,1 Person Assistance ,Use of Upper Extremities Equipment Transfer Assistive Device Gait Belt,Front Wheeled Walker Orthotic/Prosthetic Devices or Brace: No Comments Mobility Comments checked pt this morning for PT eval and was able to obtain PLOF and home set up from pt. after getting info, PT was informed by OT to hold PT per hospitalist. OT informed PT this afternoon that hospitalist wants PT to try to see pt. pt supine in bed and sleepy but agreed to do PT. informed pt regarding L2 fx and educated on back precautions and log roll bed mobility. pt completed log roll supine to sit max A and max cues. pt used bed rail to assist. pt requiring min to mod A for sitting balance on EOB. pt presents with increase retrolean and lateral trunk leaning to the L. pt completed sit to stand mod to max A and max cues. pt ambulated in room ~ 20 ft. using FWW mod A and max cues. pt presents with unsteady gait. pt requested to go back to bed. completed log roll sit to supine max A and max cues with use of bed rail. positioned pt in bed. call light and table placed within reach. Gait Assessment Gait Gait Assistance Required: Moderate Assistance,1 Person Assist Distance (Feet) 20 Able to Maintain Weight Bearing Status Yes During Gait Assistive Devices Assistive Device Gait Belt Orthotic/Prosthetic Devices or Brace: No Gait Deviations General Gait Pattern Ataxic,Decreased Stride Length ,Decreased Feet Clearance Factors Limiting Gait Function Factors Limiting Gait Function Decreased Activity Tolerance, Decreased Strength,Difficulty Following Directions,Limited Range of Motion,Pain,Poor Balance,Poor Safety Awareness PT-Balance Assessment Sitting Balance and Reactions Static Sitting Balance Ability Fair Dynamic Sitting Balance Ability Fair Standing Balance and Reactions Static Standing Balance Ability Fair Dynamic Standing Balance Ability Poor Device Used FWW M5 PT-IP Objective Assessments Start: 01/07/24 15:51 Freq: NEEDED Status: Active Protocol: Document 01/07/24 11:05 AB (Rec: 01/07/24 16:14 AB [id number]) Orientation Orientation/Cognition Level of Alertness Alert Orientation Name Language Function Ability Hard of Hearing Safety Awareness Decreased Safety Awareness Memory Description Short Term Impaired,[employer] Professor Impaired Gross Range of Motion Lower Extremity ROM Assessment Within Functional Limits Strength Lower Extremity Strength Assessment Right Impaired Hip 4-/5 Knee 3+/5 Sensation Assessment Sensation Gross Sensation WNL Muscle Tone Muscle Tone WNL Yes M6 PT-IP Treatment Start: 01/07/24 15:51 Freq: NEEDED Status: Active Protocol: Document 01/07/24 11:05 AB (Rec: 01/07/24 16:14 AB [id number]) Physical Therapy Treatment Education Education Provided Safety M7 PT-IP Assessment and Plan Start: 01/07/24 15:51 Freq: NEEDED Status: Active Protocol: Document 01/07/24 11:05 AB (Rec: 01/07/24 16:14 AB [id number]) PT Summary Assessment and Plan Potential Rehabilitation Potential Fair Status of Condition at Evaluation Evolving Summary Impairments Pain,ROM,Strength,Balance, Coordination,Sensation,Tone, Cognition,Bed Mobility, Transfers,Gait,Activity Tolerance Assessment Summary pt is an 88 y/o F s/p fall. pt admitted for adult failure to thrive and respiratory failure. pt with recent hospitalization at [facility] also after a fall sustaining a subdural hemorrhage. pt went to [facility] few days again after a fall and found to have L2 fx and 9&10 rib fx. pt refused to go to SNF. pt went home and home health services came to evaluate pt and deemed pt's living situation is unsafe and pt was brought to this hospital. pt requiring max A with bed mobility, mod to max A for transfers and mod A using FWW ~ 20 ft. pt with decrease safety awareness affecting mobility level. pt will require SNF rehab to improve overall strength and function. Goals Bed Mobility Goal Standby Assistance Transfer Goal Standby Assistance,Front Wheeled Walker Gait Goal Standby Assistance,Front Wheel Walker Gait Distance 100 Other Goals improve bed mobility, transfers , ambulation using FWW ~ 150 ft mod I up/down 5 steps B rails SBA Days to Meet Goals 10 Frequency of Treatment Frequency Of Treatment Once a Day Treatment Plan Physical Therapy Treatment Plan Bed Mobility Training,Transfer Training,Gait Training, Therapeutic Exercise,Balance Retraining,Discharge Planning, Hot or Cold Pack,Neuromuscular Re-ed,Coordination Retraining ,Manual Therapy Precautions Lumbar Precautions Log Roll,No Twisting,Limit Bending,Lifting Restriction of 10 lbs,Gait Belt above Incisional Area Other Precautions falls Recommendations To Nursing Amount of Assist Needed 1 Person Assist Discharge Recommendations PT Discharge Recommendations SNF Rehab Transportation Needs at Discharge Private Vehicle,Wheelchair/ Cabulance
--- NOTE | 2024-01-07 14:35 | OT.IP.EVAL ---
Current Diagnoses Hypothyroidism, unspecified (01/06/24) Depression, unspecified (01/06/24) Anxiety disorder, unspecified (01/06/24) Essential (primary) hypertension (01/06/24) Paroxysmal atrial fibrillation (01/06/24) Pneumonitis due to inhalation of food and vomit (01/06/24) Acute respiratory failure with hypoxia (01/06/24) Adult failure to thrive (01/06/24) Wedge compression fracture of second lumbar vertebra, initial encounter for closed fracture (01/06/24) Other reduced mobility (01/06/24) Other specified health status (01/06/24) Past Medical History (Last Updated 01/07/24 @ 02:03 by Geronimo Wan MD) Anxiety and depression Hypothyroidism Impaired mobility and activities of daily living PAF (paroxysmal atrial fibrillation) Occupational Therapy Inpatient Evaluation/Re-Eval M1 PT/OT-IP Prior Functional Status Start: 01/07/24 14:18 Freq: NEEDED Status: Active Protocol: Document 01/07/24 14:18 [facility] (Rec: 01/07/24 14:30 [facility] [id number]) Medical Review Prior Functional Status Mobility and Gait Pt intially states did not use a device to walk with at home and then states uses a FWW. Activities of Daily Living and IADL's Pt states has been able to do her ADL needs. Prior Functional Level (Other details) Per pt just recently discarded from [place] and fell backwards while on her bed striking her head on the head board. Social History Household Members spouse Living Arrangements House Number of Floors (Floors) One Floor Number of Stairs To Enter/Railing? 4-5 steps with bilateral rails . Home Environment High Toilet,Walk in Shower Home Equipment Four Wheel Walker,Straight Cane,Hand Held Shower Additional Social History Comment Pt states her daughter is in town to assist but otherwise lives witih her . M2 OT-IP Current Condition Start: 01/07/24 14:18 Freq: Status: Active Protocol: Document 01/07/24 14:18 [facility] (Rec: 01/07/24 14:30 [facility] [id number]) Occupational Therapy Current Condition Current Condition Evaluation Date 01/07/24 Treatment Diagnosis L2 compression fx, acute 9, 10th rib fractires, PNA, enceph Diagnosis Onset Date 01/07/24 M3 OT- IP Subjective and Pain Start: 01/07/24 14:18 Freq: Status: Active Protocol: Document 01/07/24 14:18 [facility] (Rec: 01/07/24 14:30 [facility] [id number]) OT- Subjective Occupational Therapy Visit Type Type Initial Evaluation Visit Start Time 13:10 Visit Stop Time 14:10 Occupational Therapy Visit Comments Patient Comments Pt agreed to get up to the sink for grooming needs. Patient/Caregiver Goals Pt is insistent to go home. OT Pain Assessment Pain When Pain Assessed During Mobility Pain Present Pain Present Pain Reported Location Lower back Intensity 5 Scale Used Numeric (0 - 10) M4 OT- IP ADL's Start: 01/07/24 14:18 Freq: Status: Active Protocol: Document 01/07/24 14:18 [facility] (Rec: 01/07/24 14:30 [facility] [id number]) OT [id number] Comments OT Self-Feeding Comments Pt coughing on liquid and educated to take small sip and tuck her chin. OT ADL-Grooming General Evaluation Grooming Ability Standby Assistance Areas Needing Assistance Retrieving/Set-up of Grooming Items Comments OT Grooming Comments Pt able to do while standing at the sink with CGA for balance with FWW. OT ADL-Oral Care General Eval Oral Care Ability Independent OT ADL-Dressing General Eval Lower Body Dressing Ability Maximum Assistance Comments OT Dressing Comments Able to go over and show pt use of engraver signature and sock aid for LB dressing needs. At this time pt will need assist for all dressing needs due to her pain. OT ADL-Toileting Comments OT Toileting Comments Pt states used the BSC earlier with nursing. OT ADL-Bathing Comments OT Bathing Comments Pt will benefit from a shower chair at home to use. M5 OT- IP IADL's Start: 01/07/24 14:18 Freq: Status: Active Protocol: Document 01/07/24 14:18 [facility] (Rec: 01/07/24 14:30 [facility] [id number]) OT-Instrumental Activities of Daily Living Deficits IADL Deficits Identified Deficits Home Safety Awareness Awareness of Need for Assistance at Home Decreased Awareness Home Safety Comments Pt is a bit groggy and having difficulty to states prior level of care and device she used before. Medication Management Medication Management Comments At this time pt would benefit from assist. Money Management Money Management Comments Pt will need assist. Meal Preparation Meal Preparation Comments Pt will need assist. Third Officer Third Officer Comments Pt will need assist. M6 OT- IP Functional Cognition Start: 01/07/24 14:18 Freq: Status: Active Protocol: Document 01/07/24 14:18 [facility] (Rec: 01/07/24 14:30 [facility] [id number]) Cognitive Factors Limiting Selfcare Function Cognitive Ability Level of Alertness Drowsy Patient Orientation Name,Age,Birthday,Place, Situation Attention Span Ability Capable of Focused Attention, Capable of Sustained Attention Ability to Follow Commands Able to Follow One Step Commands with Increased Time, Able to Follow One Step Commands with Repetition Cognitive Comments Cognitive Assessment Comments Pt needing concrete cues to follow and step by step instructions for safety with FWW. Pt will benefit from a cognitive assessment. OT- Vision and Hearing OT- Vision Assessment Visual Acuity Glasses All The Time Vision Assessment Comments Pt does not have her glasses. M7 OT- IP Mobility and Balance Start: 01/07/24 14:18 Freq: Status: Active Protocol: Document 01/07/24 14:18 [facility] (Rec: 01/07/24 14:30 [facility] [id number]) OT- Bed Mobility Assessment Sit to Supine Sit to Supine Assist Maximum Assistance OT-Transfer Assessment Sit to and From Stand Sit to and from Stand Minimal Assistance,Moderate Assistance Transfers Transfer Ability Minimal Assistance Technique Transfer Destination Bed,Chair Transfer Technique Stand Step Pivot Devices Transfer Assistive Devices Gait Belt,Front Wheeled Walker Comments Mobility Comments [place] to MODA to stand from lower surfaces. Pt MODA to help scoot to the edge of the bed. once on her feet [place] with FWW and assist to steady the FWW and guide it as pt having difficulty to see. OT- Balance Assessment Sitting Balance and Reactions Static Sitting Balance Ability Fair Dynamic Sitting Balance Ability Fair Standing Balance and Reactions Static Standing Balance Ability Fair Dynamic Standing Balance Ability Poor M8 OT- IP Objective Assessments Start: 01/07/24 14:18 Freq: Status: Active Protocol: Document 01/07/24 14:18 [facility] (Rec: 01/07/24 14:30 [facility] [id number]) OT Gross Range of Motion Upper Extremity Range of Motion ROM Impairments grossly WFL OT Strength Comments Strength Comments At least 3-/5 NT due to ribfx OT- Coordination Assessment Comments Coordination Comments Pt needing assist to open packages. M9 OT- IP Assessment and Plan Start: 01/07/24 14:18 Freq: Status: Active Protocol: Document 01/07/24 14:18 [facility] (Rec: 01/07/24 14:30 [facility] [id number]) OT Summary Assessment and Plan Potential Rehabilitation Potential Fair Analytic Complexity at Evaluation High Summary OT Impairments Pain,Strength,Balance, Coordination,Functional Cognition,Functional Mobility, Self-Feeding,Grooming,Dressing ,Toileting,Bathing,Toilet Transfers,Shower Transfers, Activity Tolerance Progress Towards Goals Slow Progress due to Pain,Slow Progress due to Medical Issues,Slow Progress due to Activity Tolerance,Slow Progress due to Cognition Assessment Summary Pt high complexity due to acute hypoxemic resp, PNA, and main barriers are steps, decreased balance , activity tolerance, safety awareness, swallowing difficulties, and needing one person assist for ADL and mobility needs.Pt insisting on going home, however per case management note, pt's not able to physically or cognitively able to assist pt for her needs and that the daughter is going back to [place]. Pt will benefit from skilled rehab and possibly assisted living. Therefore pt not appropriate to go home at this time.
--- NOTE | 2024-01-07 14:39 | ST.IPCSEOM ---
Addendum entered and electronically signed by Reynaldo Gabriel 01/07/24 15:36: SORT SUPERVISOR contacted [facility] who confirmed pt is scheduled for MBSS on 01/07 at 14:00. Plan to notify pt during treatment session tomorrow. Original Note: Visit Care Team Role Provider Type Brii Flores PA-C Family Provider Non-Staff Primary Care Provider Specialty: Medical Address: [address] [place] [address], [id number] Email: Neeta Christensen MD Emergency Provider Physician Referring Provider Specialty: Emergency Medicine Address: [address] [place] [address], [id number] Email: [email or web address] Geronimo Wan MD Admit Provider Physician Attending Provider Specialty: Internal Medicine Address: [address] [place] [address], [id number] Email: [email or web address] Current Diagnoses Hypothyroidism, unspecified (01/06/24) Depression, unspecified (01/06/24) Anxiety disorder, unspecified (01/06/24) Essential (primary) hypertension (01/06/24) Paroxysmal atrial fibrillation (01/06/24) Pneumonitis due to inhalation of food and vomit (01/06/24) Acute respiratory failure with hypoxia (01/06/24) Adult failure to thrive (01/06/24) Wedge compression fracture of second lumbar vertebra, initial encounter for closed fracture (01/06/24) Other reduced mobility (01/06/24) Other specified health status (01/06/24) Past Medical History (Last Updated 01/07/24 @ 02:03 by Geronimo Wan MD) Anxiety and depression (Medical) Hypothyroidism (Medical) Impaired mobility and activities of daily living (Medical) PAF (paroxysmal atrial fibrillation) (Medical) Speech-Language Pathology Swallow Evaluation SORT SUPERVISOR Clinical Swallow Evaluation Start: 01/07/24 13:23 Freq: Status: Active Protocol: Document 01/07/24 13:24 SS (Rec: 01/07/24 14:38 SS [id number]) Clinical Swallow Evaluation Session Time Visit Start Time 12:30 Visit Stop Time 13:12 Total Visit Minutes 42 Visit Information Visit Number Initial Evaluation Insurance Information Medicare Referral Referring Provider Dr. Neeta Christensen Reason for Referral Swallowing concerns and hx of aspiration PNA Setting Assessment Location Acute Care Visit Type Note Type Initial evaluation Next Note Type Next Note Type Treatment Note Patient Information Identification Type Name,Wristband History Patient is an 88 year old female with PMH of A-fib, HTN, and Hypothyroidism who was referred to SORT SUPERVISOR for assessment and treatment of swallowing function. She was admitted to ED on 01/05 and was encephalopathic with evidence of pneumonia upon admission. Chest x-ray showed coarsened lung markings and prominent lung volumes. Per H&P, ?recent hospitalization in [place], 1.5 months ago, with SDH, aspiration PNA, PE, who was discharged home as she refused SNF. Yesterday she sustained ground level fall and was taken to Counts include 234 beds at the [facility] emergency department. At that time patient was found to have fracture of L2 anterosuperior endplate and acute fractures of 9th and 10th ribs. Per review of [facility] ER note patient again declined rehab and hospitalization and requested to go home with home health. Patient did have saturations of 93-94% in the hospital. Today, home health came to evaluate the patient in deemed her living situation to be unsafe. 911 was called and patient brought to [facility] for assessment.? Additionally, per ER report, swallow study at outside hospital notable for silent aspiration. Patient did not tolerate NG tube and after goals of care discussion with and palliative Care, it was decided that p.o. diet despite risk of aspiration was more in line with the patient 's goals of care. Swallow study report not available for review at time of evaluation. Subjective Observations Pt was sitting upright in armchair upon SORT SUPERVISOR arrival with meal tray at bedside. She was engaged and motivated throughout. She was alert and oriented x4 and was able to respond to case history egocentric and contextual questions. Reported by Patient/Caregiver Other Symptoms History of aspiration or pneumonia,Weight loss Comment Pt reported she has lost about 15-20 lbs in the past year. She reports occasional coughing and throat clearing with both solids and liquids. Pt cannot recall prior swallow study, though recalls having PNA at previous hospital stay. Current Diet Regular (IDDSI 7) Baseline Feeding Method Needs some assistance The IDDSI Framework Protocol: IDDSI.1 Objective Assessment Mental Status Alert,Responsive,Cooperative Oral Integrity WFL Dentition Within normal limits Lip Function Within normal limits Observation of Lips at Rest Symmetrical Pucker Within normal limits Lip Retraction Within normal limits Alternating Pucker/Lip Retraction Within normal limits Tongue Function Within normal limits Observations of Tongue at Rest Within normal limits Tongue Protrusion Within normal limits Tongue Retraction Within normal limits Tongue Lateralization Within normal limits Jaw Function Within normal limits Observation of Jaw at Rest Within normal limits Jaw Opening Within normal limits Jaw Closing Within normal limits Jaw Lateralization Within normal limits Jaw Protrusion Within normal limits Jaw Retraction Within normal limits Hard/Soft Palate Function Within normal limits Observations of Hard/Soft Palate Within normal limits Nasality Within normal limits Respiratory Sufficiency Moderate impairment Comment On nasal cannula Food and Liquid Trials Position During Assessment Upright (90 degrees) Liquids Trialed Thin (IDDSI 0) Solid Trials Purred (IDDSI 4),Soft & Bite- sized (IDDSI 6),Regular (IDDSI 7) Administration Type Cup single sip,Cup consecutive sips,Self-feeding,Needs some assistance Oral Impairment Within normal limits Oral Phase Comments Good oral acceptance and adequate labial closure. Slow mastication with delayed oral transit. Complete oral clearance with use of liquid wash. Pharyngeal Impairment Moderately impaired Pharyngeal Phase Comments Pharyngeal swallow appears delayed and effortful. Required multiple swallows per bolus. Overt s/sx of aspiration (immediate reflexive cough with sequential sips of thin liquid and throat clearing with regular texture. Pt completed single sips of thin liquids via cup and straw as well as small bites of soft and bite- sized and puree textures without any overt concerns, though unable to rule out silent aspiration given visualization of silent aspiration on prior MBSS. Fatigue/Endurance Moderate fatigue Comment Pt with minimal intake and endorsing fatigue with mastication of regular textures. Vicky Swallow Protocol No Results Did not complete 3 oz water protocol given overt s/sx of aspiration with sequential sips. Deemed unsafe. The IDDSI Framework Protocol: IDDSI.1 Findings Swallowing Function Oropharyngeal phase dysphagia Severity of Swallow Impairment Moderately-severely impaired Contributing Factors to Swallow Mastication inefficiency, Impairment Impaired oral-pharyngeal transport,Delayed swallow initiation,Impaired airway protection Prognosis Guarded Based on Age,History of aspiration/ aspiration pneumonia, Comorbidities,Duration of symptoms/severity Comment Pt presents with indications of oropharyngeal dysphagia and aspiration risk is judged to be high. Oral phase is characterized by slow bolus manipulation and appears disorganized. Pharyngeal phase cannot be objectively assessed at bedside though subjectively appeared effortful and pt required 2-3 swallows per bolus at times. Pt demonstrated consistent s/ sx of aspiration with sequential sips of thin liquids and regular textures re: throat clearing and coughing. Cough strength is judged weak, increasing aspiration related complications. Based on patient?s fair oral health status and overall immune function, patient currently remains at a high risk of pulmonary compromise associated with aspiration at this time. SORT SUPERVISOR explained the basic anatomy and physiology of the swallowing function. Explained when the airway is not protected, food and liquid can enter the lungs with bacteria from the mouth. This is called aspiration, and after many instances of aspiration, respiratory infection could result. Pneumonia is the most common respiratory infection resulting from aspiration events, and while it can be treated with medication, it can lead to medical compromise and . Explained pt?s current high aspiration risk. Discussed results of most recent MBSS which was notable for silent aspiration and recommended NPO status. Reviewed pt?s risk for developing respiratory illness using Maral?s Three Pillars of Pneumonia. The following factors place her at a high risk for developing pneumonia: decreased oral health status, presence of aspiration, and decreased immune system. Pt immediately ruled out NPO as an option and expressed multiple times that this option did not align with her wishes. Recommended downgrade to soft and bite-sized textures with small single sips of thin liquids until MBSS can be completed. Provided education re: importance of completing oral care prior to PO intake in order to reduce colonization of oral bacteria and aspiration pneumonia. Pt expressed understanding and is agreeable. Modified barium swallow study (MBSS) is indicated to thoroughly further assess patient?s swallow pathophysiology in order to determine the safest diet, effective compensatory strategies, and potential rehabilitation exercises for therapy. Hospitalist placed order and SORT SUPERVISOR initiated scheduling in-house. Educated pt re: recommended safe swallow precautions to reduce the risk of aspiration, including small bites, single sips, no straws, slow rate, alternating liquids and solids , upright positioning during PO intake, and thorough oral care before and after meals. Pt verbalized understanding. Notified RN and hospitalist re : assessment results and current recommendations. They expressed understanding. Impact on Safety and Functioning Risk for aspiration,Risk for inadequate nutrition/hydration Recommendations Instrumental Assessment Yes Swallowing Treatment Yes Frequency x5/week Recommended Solids Soft & Bite-sized (IDDSI 6) Recommended Liquids Thin (IDDSI 0) Other Recommendations The plan is for the patient to complete a modified barium swallow study to further assess swallowing pathophysiology in order to determine treatment plan. Further goals will be established based on MBSS results. Safety Precautions/Swallowing 1 to 1 close supervision,Feed Recommendations only when alert,Remain upright (90 degrees) during all oral intake,Upright position at least 30 minutes after meals, Small bites and sips when eating,Slow rate; swallow between bites,No straw,Set-up assistance,Strict oral care after intake Medication Recommendations As Tolerated,Whole in Carrier Discharge Recommendations [facility] facility,penitentiary care facility,Palliative care Education Patient/Caregiver Education Patient expressed understanding of evaluation, Patient expressed agreement with goals & treatment plans Goals Short-term Goals 1. Patient will complete MBSS to further evaluate swallowing pathophysiology and determine next steps in POC. 2. Patient will utilize safe swallowing strategies in 90% of opportunities with minimal verbal and visual cues in order to consume least restrictive diet texture and liquid consistency in order to meet primary nutrition and hydration needs. 3. Patient will consume soft and bite-sized diet texture ( SB6) with no overt s/sx of aspiration in 100% of opportunities in order to consume least restrictive diet and reduce risk of aspiration pneumonia. 4. Patient will consume thin liquids with no overt s/sx of aspiration in 100% of opportunities in order to consume least restrictive diet and reduce risk of aspiration pneumonia. Long-term Goals 1. Patient will safely tolerate least restrictive diet consistency to allow for safe consumption of daily meals with minimal s/sx of aspiration.
--- NOTE | 2024-01-07 14:44 | OT.IP.EVAL ---
Current Diagnoses Hypothyroidism, unspecified (01/06/24) Depression, unspecified (01/06/24) Anxiety disorder, unspecified (01/06/24) Essential (primary) hypertension (01/06/24) Paroxysmal atrial fibrillation (01/06/24) Pneumonitis due to inhalation of food and vomit (01/06/24) Acute respiratory failure with hypoxia (01/06/24) Adult failure to thrive (01/06/24) Wedge compression fracture of second lumbar vertebra, initial encounter for closed fracture (01/06/24) Other reduced mobility (01/06/24) Other specified health status (01/06/24) Past Medical History (Last Updated 01/07/24 @ 02:03 by Geronimo Wan MD) Anxiety and depression Hypothyroidism Impaired mobility and activities of daily living PAF (paroxysmal atrial fibrillation) Occupational Therapy Inpatient Evaluation/Re-Eval M1 PT/OT-IP Prior Functional Status Start: 01/07/24 14:18 Freq: NEEDED Status: Active Protocol: Document 01/07/24 14:18 [facility] (Rec: 01/07/24 14:30 [facility] [id number]) Medical Review Prior Functional Status Mobility and Gait Pt intially states did not use a device to walk with at home and then states uses a FWW. Activities of Daily Living and IADL's Pt states has been able to do her ADL needs. Prior Functional Level (Other details) Per pt just recently discarded from [place] and fell backwards while on her bed striking her head on the head board. Social History Household Members spouse Living Arrangements House Number of Floors (Floors) One Floor Number of Stairs To Enter/Railing? 4-5 steps with bilateral rails . Home Environment High Toilet,Walk in Shower Home Equipment Four Wheel Walker,Straight Cane,Hand Held Shower Additional Social History Comment Pt states her daughter is in town to assist but otherwise lives with her . M2 OT-IP Current Condition Start: 01/07/24 14:18 Freq: Status: Active Protocol: Document 01/07/24 14:18 [facility] (Rec: 01/07/24 14:30 [facility] [id number]) Occupational Therapy Current Condition Current Condition Evaluation Date 01/07/24 Treatment Diagnosis L2 compression fx, acute 9, 10th rib fractures, PNA, enceph Diagnosis Onset Date 01/07/24 M3 OT- IP Subjective and Pain Start: 01/07/24 14:18 Freq: Status: Active Protocol: Document 01/07/24 14:18 [facility] (Rec: 01/07/24 14:30 [facility] [id number]) OT- Subjective Occupational Therapy Visit Type Type Initial Evaluation Visit Start Time 13:10 Visit Stop Time 14:10 Occupational Therapy Visit Comments Patient Comments Pt agreed to get up to the sink for grooming needs. Patient/Caregiver Goals Pt is insistent to go home. OT Pain Assessment Pain When Pain Assessed During Mobility Pain Present Pain Present Pain Reported Location Lower back Intensity 5 Scale Used Numeric (0 - 10) M4 OT- IP ADL's Start: 01/07/24 14:18 Freq: Status: Active Protocol: Document 01/07/24 14:18 [facility] (Rec: 01/07/24 14:30 [facility] [id number]) OT HDI-Wxms-Pnrzoic Comments OT Self-Feeding Comments Pt coughing on liquid and educated to take small sip and tuck her chin. OT ADL-Grooming General Evaluation Grooming Ability Standby Assistance Areas Needing Assistance Retrieving/Set-up of Grooming Items Comments OT Grooming Comments Pt able to do while standing at the sink with CGA for balance with FWW. OT ADL-Oral Care General Eval Oral Care Ability Independent OT ADL-Dressing General Eval Lower Body Dressing Ability Maximum Assistance Comments OT Dressing Comments Able to go over and show pt use of earth science professor and sock aid for LB dressing needs. At this time pt will need assist for all dressing needs due to her pain. OT ADL-Toileting Comments OT Toileting Comments Pt states used the BSC earlier with nursing. OT ADL-Bathing Comments OT Bathing Comments Pt will benefit from a shower chair at home to use. M5 OT- IP IADL's Start: 01/07/24 14:18 Freq: Status: Active Protocol: Document 01/07/24 14:18 [facility] (Rec: 01/07/24 14:30 [facility] [id number]) OT-Instrumental Activities of Daily Living Deficits IADL Deficits Identified Deficits Home Safety Awareness Awareness of Need for Assistance at Home Decreased Awareness Home Safety Comments Pt is a bit groggy and having difficulty to states prior levle of care and device she used before. Medication Management Medication Management Comments At this time pt would benefit from assist. Money Management Money Management Comments Pt will need assist. Meal Preparation Meal Preparation Comments Pt will need assist. Pilot Pilot Comments Pt will need assist. M6 OT- IP Functional Cognition Start: 01/07/24 14:18 Freq: Status: Active Protocol: Document 01/07/24 14:18 [facility] (Rec: 01/07/24 14:30 [facility] [id number]) Cognitive Factors Limiting Selfcare Function Cognitive Ability Level of Alertness Drowsy Patient Orientation Name,Age,Birthday,Place, Situation Attention Span Ability Capable of Focused Attention, Capable of Sustained Attention Ability to Follow Commands Able to Follow One Step Commands with Increased Time, Able to Follow One Step Commands with Repetition Cognitive Comments Cognitive Assessment Comments Pt needing concrete cues to follow and step by step instructions for safety with FWW. Pt will benefit from a cognitive assessment. OT- Vision and Hearing OT- Vision Assessment Visual Acuity Glasses All The Time Vision Assessment Comments Pt does not have her glasses. M7 OT- IP Mobility and Balance Start: 01/07/24 14:18 Freq: Status: Active Protocol: Document 01/07/24 14:18 [facility] (Rec: 01/07/24 14:30 [facility] [id number]) OT- Bed Mobility Assessment Sit to Supine Sit to Supine Assist Maximum Assistance OT-Transfer Assessment Sit to and From Stand Sit to and from Stand Minimal Assistance,Moderate Assistance Transfers Transfer Ability Minimal Assistance Technique Transfer Destination Bed,Chair Transfer Technique Stand Step Pivot Devices Transfer Assistive Devices Gait Belt,Front Wheeled Walker Comments Mobility Comments [place] to MODA to stand from lower surfaces. Pt MODA to help scoot to the edge of the bed. once on her feet [place] with FWW and assist to steady the FWW and guide it as pt having difficulty to see. OT- Balance Assessment Sitting Balance and Reactions Static Sitting Balance Ability Fair Dynamic Sitting Balance Ability Fair Standing Balance and Reactions Static Standing Balance Ability Fair Dynamic Standing Balance Ability Poor M8 OT- IP Objective Assessments Start: 01/07/24 14:18 Freq: Status: Active Protocol: Document 01/07/24 14:18 [facility] (Rec: 01/07/24 14:30 [facility] [id number]) OT Gross Range of Motion Upper Extremity Range of Motion ROM Impairments grossly WFL OT Strength Comments Strength Comments At least 3-/5 NT due to ribfx OT- Coordination Assessment Comments Coordination Comments Pt needing assist to open packages. M9 OT- IP Assessment and Plan Start: 09/04/24 14:18 Freq: Status: Active Protocol: Document 01/07/24 14:18 [facility] (Rec: 01/07/24 14:30 [facility] [id number]) OT Summary Assessment and Plan Potential Rehabilitation Potential Fair Analytic Complexity at Evaluation High Summary OT Impairments Pain,Strength,Balance, Coordination,Functional Cognition,Functional Mobility, Self-Feeding,Grooming,Dressing ,Toileting,Bathing,Toilet Transfers,Shower Transfers, Activity Tolerance Progress Towards Goals Slow Progress due to Pain,Slow Progress due to Medical Issues,Slow Progress due to Activity Tolerance,Slow Progress due to Cognition Assessment Summary Pt high complexity and main bariers are pain, decreased activity tolerance and balance and now needing one person assist for all ADL and mobility needs. Pt is also on O2 as prior did not use O2. Pt will benefit from skilled rehab as her per case management note unable to physically and cognitive assist pt appropriately. Therefore pt will benefit from skilled rehab at this time. Pt to be able to be MOD I with all ADl and mobility needs within 20 days with good safety, Pt to be seen 5x/week while in the hospital by OT.
[2024-01-07] MEDS: PIPERACILLIN/TAZO 3.375 GM in SODIUM CHLORIDE 0.9% 100 ML IV (17:38)
[2024-01-07] MEDS: APIXABAN 5 MG TABLET 2.5 MG PO (20:44)
[2024-01-07] MEDS: clonazePAM 0.5 MG TABLET 1 MG PO (20:45)
[2024-01-08] MEDS: OXYCODONE IR 5 MG TABLET PO (00:01)
[2024-01-08] MEDS: PIPERACILLIN/TAZO 3.375 GM in SODIUM CHLORIDE 0.9% 100 ML IV ×3 (00:01→17:16)
[2024-01-08] MEDS: ACETAMINOPHEN 325 MG TABLET 650 MG PO ×2 (02:34→17:16)
[2024-01-08] MEDS: LEVOTHYROXINE 100 MCG TABLET PO (05:31)
[2024-01-08 06:00] VITALS: BP 142/79; PULSE 82; RESP 18; TEMP 36.2; O2SAT 95
[2024-01-08 08:00] VITALS: BP 140/80; PULSE 81; RESP 14; TEMP 36.4; O2SAT 95
--- NOTE | 2024-01-08 08:40 | OT.IP.TRT ---
Current Diagnoses Hypothyroidism, unspecified (01/06/24) Depression, unspecified (01/06/24) Anxiety disorder, unspecified (01/06/24) Essential (primary) hypertension (01/06/24) Paroxysmal atrial fibrillation (01/06/24) Pneumonitis due to inhalation of food and vomit (01/06/24) Acute respiratory failure with hypoxia (01/06/24) Adult failure to thrive (01/06/24) Wedge compression fracture of second lumbar vertebra, initial encounter for closed fracture (01/06/24) Other reduced mobility (01/06/24) Other specified health status (01/06/24) Occupational Therapy Treatment Note M2 OT-IP Current Condition Start: 01/07/24 14:18 Freq: Status: Active Protocol: Document 01/07/24 14:18 [facility] (Rec: 01/07/24 14:30 [facility] [id number]) Occupational Therapy Current Condition Current Condition Evaluation Date 01/07/24 Treatment Diagnosis L2 compression fx, acute 9, 10th rib fractires, PNA, enceph Diagnosis Onset Date 01/07/24 M3 OT- IP Subjective and Pain Start: 01/07/24 14:18 Freq: Status: Active Protocol: Document 01/08/24 09:11 [facility] (Rec: 01/08/24 09:26 [facility] [id number]) OT- Subjective Occupational Therapy Visit Type Type Treatment Note Visit Start Time 08:40 Visit Stop Time 09:05 Occupational Therapy Visit Comments Patient Comments Pt just woke up but agreed to do cognitive assessment. Patient/Caregiver Goals Pt is very insistent to go home. OT Pain Assessment Pain When Pain Assessed At Rest Pain Present Pain Present Pain Reported Location Lower back Pain Behaviors Holding Area,[place] M4 OT- IP ADL's Start: 01/07/24 14:18 Freq: Status: Active Protocol: Document 01/07/24 14:18 [facility] (Rec: 01/07/24 14:30 [facility] [id number]) OT FGS-Mtbt-Hcrxunl Comments OT Self-Feeding Comments Pt coughing on liquid and educated to take small sip and tuck her chin. OT ADL-Grooming General Evaluation Grooming Ability Standby Assistance Areas Needing Assistance Retrieving/Set-up of Grooming Items Comments OT Grooming Comments Pt able to do while standing at the sink with CGA for balance with FWW. OT ADL-Oral Care General Eval Oral Care Ability Independent OT ADL-Dressing General Eval Lower Body Dressing Ability Maximum Assistance Comments OT Dressing Comments Able to go over and show pt use of cupola charger insulation and sock aid for LB dressing needs. At this time pt will need assist for all dressing needs due to her pain. OT ADL-Toileting Comments OT Toileting Comments Pt states used the BSC earlier with nursing. OT ADL-Bathing Comments OT Bathing Comments Pt will benefit from a shower chair at home to use. M5 OT- IP IADL's Start: 01/07/24 14:18 Freq: Status: Active Protocol: Document 01/07/24 14:18 [facility] (Rec: 01/07/24 14:30 [facility] [id number]) OT-Instrumental Activities of Daily Living Deficits IADL Deficits Identified Deficits Home Safety Awareness Awareness of Need for Assistance at Home Decreased Awareness Home Safety Comments Pt is a bit groggy and having difficulty to states prior level of care and device she used before. Medication Management Medication Management Comments At this time pt would benefit from assist. Money Management Money Management Comments Pt will need assist. Meal Preparation Meal Preparation Comments Pt will need assist. Junior Project Manager Junior Project Manager Comments Pt will need assist. M6 OT- IP Functional Cognition Start: 01/07/24 14:18 Freq: Status: Active Protocol: Document 01/08/24 09:11 [facility] (Rec: 01/08/24 09:26 [facility] [id number]) Cognitive Factors Limiting Selfcare Function Cognitive Ability Level of Alertness Alert,Drowsy Patient Orientation Name,Age,Birthday,Month,Date, Year,Day of Week,Place, Situation Attention Span Ability Capable of Focused Attention, Capable of Sustained Attention Ability to Follow Commands Able to Follow One Step Commands with Increased Time, Able to Follow One Step Commands with Repetition Memory Description Short Term Impaired,Working Impaired Cognitive Tests SLUMS Pt scored 15/30 which implies dementia. Pt not able to compute 100-23, able to recall 8 animals in one minute, able to recall 1/5 objects after time passed, not able to state 4 digit number backwards, not able to draw the numbers on the clock or hour hands accurately, and able to answer 3/4 questions after paragraph read. Pt's score implies dementia. Cognitive Comments Cognitive Assessment Comments Pt states has not been thinking well since being in [facility] for SDH and COvid+. Pt states has been not been able to do her bills and relying on her which also has difficulty. M7 OT- IP Mobility and Balance Start: 01/07/24 14:18 Freq: Status: Active Protocol: Document 01/07/24 14:18 [facility] (Rec: 01/07/24 14:30 [facility] [id number]) OT- Bed Mobility Assessment Sit to Supine Sit to Supine Assist Maximum Assistance OT-Transfer Assessment Sit to and From Stand Sit to and from Stand Minimal Assistance,Moderate Assistance Transfers Transfer Ability Minimal Assistance Technique Transfer Destination Bed,Chair Transfer Technique Stand Step Pivot Devices Transfer Assistive Devices Gait Belt,Front Wheeled Walker Comments Mobility Comments Theresa to MODA to stand from lower surfaces. Pt MODA to help scoot to the edge of the bed. once on her feet THERESA with FWW and assist to steady the FWW and guide it as pt having difficulty to see. OT- Balance Assessment Sitting Balance and Reactions Static Sitting Balance Ability Fair Dynamic Sitting Balance Ability Fair Standing Balance and Reactions Static Standing Balance Ability Fair Dynamic Standing Balance Ability Poor M8 OT- IP Objective Assessments Start: 01/07/24 14:18 Freq: Status: Active Protocol: Document 01/07/24 14:18 [facility] (Rec: 01/07/24 14:30 [facility] [id number]) OT Gross Range of Motion Upper Extremity Range of Motion ROM Impairments grossly WFL OT Strength Comments Strength Comments At least 3-/5 NT due to ribfx OT- Coordination Assessment Comments Coordination Comments Pt needing assist to open packages. M9 OT- IP Assessment and Plan Start: 01/07/24 14:18 Freq: Status: Active Protocol: Document 01/08/24 09:11 [facility] (Rec: 01/08/24 09:26 [facility] [id number]) OT Summary Assessment and Plan Potential Rehabilitation Potential Fair Analytic Complexity at Evaluation High Summary OT Impairments Pain,Strength,Balance, Coordination,Functional Cognition,Functional Mobility, Self-Feeding,Grooming,Dressing ,Toileting,Bathing,Toilet Transfers,Shower Transfers, Activity Tolerance Progress Towards Goals Slow Progress due to Pain,Slow Progress due to Medical Issues,Slow Progress due to Activity Tolerance,Slow Progress due to Cognition Assessment Summary Pt high complexity and main barriers are steps, pain, now needing assist for all ADL and mobility needs, having difficulty swallowing, and having difficulties with her STM and problem solving. Pt will benefit from skilled rehab and afterwards benefit from assisted living. Goals Self-Feeding Goal Independent Grooming Goal Independent Dressing Goal Minimal Assistance Toileting Goal Minimal Assistance Bathing Goal Minimal Assistance Toilet Transfer Goal Standby Assistance Shower Transfer Goal Contact Guard Assistance Days to Meet Goals 25 Frequency of Treatment Other frequency 5x/week Discharge Recommendations OT Discharge Recommendations SNF Rehab Transportation Needs at Discharge Wheelchair/Cabulance
--- NOTE | 2024-01-08 08:49 | PM.PN.1 ---
Subjective Subjective Interval history: Interval history: This is an 88 year old female with recent admission to [facility] for a [place]H complicated by respiratory failure due to COVID-19 and probable chronic aspiration. Please see discharge summary noted below. She was admitted for failure to thrive, as well as acute respiratory failure from presumed pneumonia. Today the patient feels improved. She very much wants to return home again. Case management today however received an email from home health RN with concern about the safety of patient's home environment and the ability of the spouse to assist with patient. The patient reports ongoing swallowing difficulties since neck surgery, knows behavioral techniques to follow. She is willing to work with therapies today. Discussed with RN PATIENT SERVICES who recommended dysphagia diet, she did better than expected, but did recommend barium swallow. She reports that she left rehab when they were no longer working with her to return home. S: She was still having some spine and rib pain. She was more accepting now of her need for help and a rehabilitation phase before returning home. She did well on her modified barium swallow today, she does have some penetration with recommendations for very small bites and a flow controlled beverage glass. Exam Vital Signs (past 8 hours): - 01/08/24 06:00 01/08/24 08:00 Temperature 97.2 F L 97.6 F Pulse Rate 82 81 Respiratory Rate 18 14 Blood Pressure 142/79 H 140/80 Pulse Oximetry 95 95 Oxygen Flow Rate 0 1 Fraction of Inspired Oxygen 28 SaO2/FiO2 Ratio 328 Oxygen Delivery Method Nasal Cannula Oxygen Flow Rate 1 Narrative Exam Narrative: NAD, alert and oriented. Fluent speech. Lungs are clear, normal rate and effort. Heart is regular, no murmur gallop or rub. Abdomen is soft, non distended. Extremities are free of edema. Objective Imaging Multiple studies:: Radiologist's impression: CXR: Coarsened lung markings. Prominent lung volumes. Labs 01/07/24 03:35 01/07/24 03:35 Labs: Laboratory Results - last 24 hr 01/07/24 13:12 Urine Color Yellow Urine Appearance Clear Urine pH 6.0 Ur Specific [place] 1.025 Urine Protein Trace H Urine Glucose (UA) Negative Urine Ketones Negative Urine Occult Blood Negative Urine Nitrate Negative Urine Bilirubin Negative Urine Urobilinogen 1.0 Ur Leukocyte Esterase Negative Urine RBC 0-1/hpf Urine WBC 1-5/hpf Ur Squamous Epith Cells 1-5 /hpf Urine Bacteria Few (2-10) H Urine Mucus 3+ H Urine Yeast 5-10/hpf H Ur Culture Indicated? Specimen cultured Vol Urine Centrifuged 10ml (spun) [facility] Medical History Anxiety and depression Impaired mobility and activities of daily living PAF (paroxysmal atrial fibrillation) Hypothyroidism Social History household members: spouse Smoking Status: Never smoker Assessment & Plan Assessment & Plan narrative: 1. Acute (possibly on chronic) hypoxic respiratory therapy likely due to bacterial, aspiration pneumonia. Present on admission and active. - RN PATIENT SERVICES evaluation ordered, appreciate recommendations. Diet changed to dyspagia per their recommendations. Discussed with speech therapist today. - continue zosyn - Silent aspiration on VFSS 12/18 and was strict NPO. 12/19 Yann consented for short term NGT for enteral access for medication delivery. However, for quality of life, patient values diet vs risk of aspiration. RN PATIENT SERVICES recommended 1:1 feeds at that time. 2. Acute cystitis vs asymptomatic bacteruria. Present on admission and active. - UA reflexed for culture, continue zosyn as above. 3. Acute metabolic encephalopathy, vs chronic cognitive impairment. Present on admission and active. - seemingly improved today, but unclear if due to medications, above infection, or chronic impairment with sundowning / delirium. - watch closely for oversedation at night with clonzepam but can continue, was on higher dose previously. - continue PT/OT and check SLUMS 4. PAF, present on admission and active. - Continue home amiodarone 200mg every other day - Home apixaban 5mg BID - Home metoprolol succinate 50mg daily ? 5. Hypothyroidism, present on admission and active. - Levothyroxine 100 mcg daily 6. HTN, present on admission and active. -continue home amlodipine and metoprolol. ? 7. Depression, present on admission and active. 8. Insomnia, present on admission and active. Holding clonazepam in setting of lethargy. - Home fluoxetine 20 mg daily - ok to continue home clonazepam 1 mg nightly, monitor for worsening encephalopathy. 9. L2 Compression fracture, present on admission and active. 10. Right 9, 10 rib fractures, present on admission and active. PLAN: -swallow evaluation with a modified barium swallow today. -diet modifications as noted. -ongoing discharge planning. Patient agrees to some sort of rehab efforts. Code: Full, surrogate is patient's spouse (given history above this may need to be revisited), alternatively has daughter visiting DVT: on apixaban Dispo: ideally discharge to SNF, SAMY: 01/09. Time-Based Coding :: 20 min spent with patient and on the chart (including review of chart, obtaining history, exam, reviewing outside data, placing orders, documenting exam and treatment plan, and counseling patient) on 01/07.
--- NOTE | 2024-01-08 09:57 | SLP.IPNOTE ---
Session attempted at 9:45, though pt asleep and with limited alertness this morning. Will re-attempt later in day as schedule allows. Pt currently NPO per hospitalist recommendation. MBSS scheduled for 14:00 today, though may have to be re-scheduled if pt is not fully alert and awake by that time.
--- NOTE | 2024-01-08 10:57 | PT-IP ANOTE ---
Per nursing pt is resting and difficult to awaken. She is not appropriate for PT at this time. May attempt to see later this afternoon.
--- NOTE | 2024-01-08 15:15 | DIET.CONS ---
Dietary Consultation Note Admission Date: 01/06/2024 21:28 Assessment: 88 y F presented with generalized weakness, failure to thrive, inability to care for self. Nutrition screened for low MNA. Met w/ pt and family at bedside. Limited interview, pt and family receiving information on MBSS results and discussing plan of care. Reports 2 chocolate Ensure a day and soup at home. Per RN, recc diet from MBSS is minced and moist. After pt and family spoke with hospitalist, confirmed pt dinner order. Ht: 162.56 cm Wt: 50.349 kg BMI: 19.0 UBW: No weight hx Last BM: () MNA: 3 Wolf Score: 17 Diet: 01/08/24 08:15 NPO Diet Diet Modifications: NPO Type: Strict 01/08/24 Dinner Dysphagia Diet Diet Modifications: Controlled flow cup(s) only; no straws Food Texture: Level 5 - Minced & Moist Liquid Consistency: Level 0 - Thin Nutrition Percent Meal Consumed family brought dinner for the 01/07/24 18:00 patient Percent Meal Consumed 25% 01/07/24 14:30 Percent Meal Consumed 25% 01/07/24 10:20 Labs: RBC 3.92 X10^6/uL (4.0-5.2) L 01/07/24 03:35 Hgb 12.0 g/dL (12.0-16.0) 01/07/24 03:35 Hct 36.2 % (36-46) 01/07/24 03:35 Creatinine 0.55 mg/dL (0.52-1.04) 01/07/24 03:35 NT-Pro-B Natriuret Pep 396 pg/mL (<450) 01/06/24 19:07 Nutrition Diagnosis: Underweight BMI r/t inadequate oral intake aeb BMI 19 Interventions: 1. ONS BID 2. F/u for full assessment EER: 9001-6615 kcals (33-35 kcals/kg per BMI) Monitoring/Evaluations: po intakes Electronically Signed by: Aster Borja 01/08/24 15:15 Clinical Dietitian [address] [address]
[2024-01-08 16:00] VITALS: BP 152/68; PULSE 87; RESP 18; TEMP 36.6; O2SAT 92
--- NOTE | 2024-01-08 16:04 | CM.DPNOTE ---
DCP Cont According to Dr Bustamante, patient passed her swallow study. Therapis recommending SNF for strengthening. Met w/patient to review these recommendations. Patient admits she would like to get better but has missed being home since she has been hospitalized for so long. Discussed SNF options and patient requests referral to [facility], says she lives near [facility] but her twin sister there last April and doesn't want to return there. Strongly encouraged patient to consider paying for a respite stay for her while she is at SNF. Daughter has been visiting from [place] and helping out and is planned to return soon. Patient considering. Referral discussed with Alondra at [facility], awaiting feedback. Patient had thought her and daughter would be at bedside this afternoon. Daughter's number not in the chart and patient does not have her phone here. A family meeting would be helpful to discuss safety and planning efforts for both patient and spouse. Hopefully this can be arranged tomorrow 01/08. CM team following closely. APS report forthcoming, hoping to first have family conference to discuss plans moving forward. MIKE
--- NOTE | 2024-01-08 16:16 | ST.SWALLOW ---
Visit Care Team Role Provider Type Brii Flores PA-C Family Provider Non-Staff Primary Care Provider Specialty: Medical Address: [address] [place], [address] Email: Neeta Christensen MD Emergency Provider Physician Referring Provider Specialty: Emergency Medicine Address: [address] [place] [address], [address] Email: [email or web address] Wan MD Admit Provider Physician Attending Provider Specialty: Internal Medicine Address: [address] [place] [address], [address] Email: [email or web address] Modified Barium Swallow Study [facility] Modified Barium Swallow Study Start: 01/08/24 15:00 Freq: Status: Active Protocol: Document 01/08/24 15:00 LNK (Rec: 01/08/24 16:16 LNK [id number]) Modified Barium Swallow Study Total Time Visit Start Time 14:00 Visit Stop Time 15:00 Total Visit Minutes [address] Bustamante Reason for Referral dysphagia; silent aspiration Setting Setting Outpatient Care Patient Information Identification Type Name,Date of Patient History Patient is an 88 year old female with PMH of A-fib, HTN, ACDF (C3-C4, C4-C5, C5-C6, C6 -C7) and Hypothyroidism who was referred to [facility] for Modified Barium Swallow Study to determine swallowing function and risk for aspiration. She was admitted to [facility] ED on 01/05 and was encephalopathic with evidence of pneumonia upon admission. Chest x-ray showed coarsened lung markings and prominent lung volumes. Per H& P, ?recent hospitalization in [place], 1.5 months ago, with SDH, aspiration PNA, PE, who was discharged home as she refused SNF. On 01/04, she sustained ground level fall and was taken to [facility] emergency department. At that time patient was found to have fracture of L2 anterosuperior endplate and acute fractures of 9th and 10th ribs. Per review of [facility] ER note patient again declined rehab and hospitalization and requested to go home with home health. Patient did have saturations of 93-94% in the hospital. Today, home health came to evaluate the patient in deemed her living situation to be unsafe. 911 was called and patient brought to [facility] for assessment.? Additionally, per ER report, swallow study at outside hospital notable for silent aspiration. Patient did not tolerate NG tube and after goals of care discussion with and palliative Care, it was decided that p.o. diet despite risk of aspiration was more in line with the patient 's goals of care. Initial MBSS report not available for review at time of evaluation. Subjective Observations Pt was seated in the fluoroscopy chair with directions and procedures described for her. She indicated she understood and agreed to proceed. Patient Positioning Position View Lateral Imaging Lateral View Textures Administered Trials Presented Thin Liquid via Spoon (IDDSI 0 ),Thin Liquid via Cup (IDDSI 0 ),Thin Liquid via Straw (IDDSI 0),Puree (IDDSI 4),Soft & Bite-sized (IDDSI Barium Tablet Yes The IDDSI Framework Protocol: IDDSI.1 Oral Impairment Source: The Modified Barium Swallow Impairment Profile (MBSImP??) Lip Closure Interlabial escape; no progression to anterior lip Tongue Control During Bolus Hold Cohesive bolus between tongue to palatal seal Bolus Preparation/Mastication Timely & efficient chewing & mashing Bolus Transport/Lingual Motion Brisk tongue motion Oral Residue Trace residue lining oral structures Location Lateral sulci Initiation of Pharyngeal Swallow Bolus head at pyriforms Additional Oral Impairment Observations *OME was observed to be WFL. Slow speed and reduced accuracy resulting in mild dysarthria *Dentition natural and in good hygiene *Mastication observed with rotary chew pattern. *Adequate bolus formation, control and AP transition. Pharyngeal Impairment Source: The Modified Barium Swallow Impairment Profile (MBSImP??) Soft Palate Elevation No bolus between soft palate & pharyngeal wall Laryngeal Elevation Comp.sup.move.thyroid cart.w/ comp.approx.arytenoids to epiglot petiole Anterior Hyoid Excursion Partial anterior movement Epiglottic Movement No inversion Laryngeal Vestibular Closure Incomplete; narrow column air/ contrast in laryngeal vestibule Pharyngeal Stripping Wave Absent Pharyngoesophageal Segment Opening Partial distention/partial duration; partial obstruction of flow Tongue Base Retraction Wide column of contrast/air betwn tongue base & post. pharyngeal wall Pharyngeal Residue Collection of residue within/ on pharyngeal structures Location Diffuse (>3 areas) Additional Pharyngeal Impairment *Poor bolus control through Observations the pharynx with NO posterior wall stripping *No epiglottic inversion with liquids in upright position *WITH CHIN TUCK, Semi solid and solid trials induced inversion at 50% of trials *Jason Aspiration x1 (silent) *Laryngel penetration x5 with residual contrast remaining in larynx *Weak reflexive cough - cues for strong cough required *Cued additional swallows reduced residue in valeculla and pharynx *With chin tuck and verbal cue for Effortful swallow (i.e., like swallowing a golf ball) , pharyngeal pooling was significantly reduced A/P View The IDDSI Framework Protocol: IDDSI.1 A/P View Observations Additional A-P Observations No AP view secondary to pt overall weakness Clinical Impressions Dysphagia Type Pharyngeal Findings *Moderate to severe pharyngeal phase dysphagia secondary to reduced airway protection, no epiglottal inversion for liquids, inconsistent inversion for solids/ semisolids, no bolus control through pharynx, PMH of ACDF for C3-C7. *Pt is at risk for aspiration of large liquid boluses and/ or sequential swallows as well as the pooled residue observed in the valeculla following solid/semisolid * Chin tuck with efftorful swallow was effective in reducing aspiration risk across all trials *Pt is good candidate for Acute Rehab on discharge *Recommend ST/Swallow therapy Rehabilitation Potential Good Patient Appropriate for Therapy Yes Recommendations Diet Liquids Order Thin (IDDSI 0) Diet Order Minced & Moist (IDDSI 5) Medication Recommendation As Tolerated,Whole in Carrier, Crushed in Carrier Additional Dietary Needs 1:1 Supervision,Reminders to Use Strategies Aspiration Precautions Recommended Precautions Upright at 90 Degrees,Small Bites/Sips,Chin Tuck,Double Swallow Additional Precautions Hard swallow (i.e., like swallowing a golf ball) Treatment Plan Therapy Recommendations Inpatient Speech Therapy, Outpatient Speech Therapy,Oral Motor Exercises,Base of Tongue Exercises Therapy Strategy Recommendations Sitting Upright (90 deg),Chin Tuck,Double Swallow Additional Strategies Recommended Flow controlled cup for all PO intake Placement Recommendation After Discharge Inpatient Rehab Facility
--- NOTE | 2024-01-08 16:23 | SLP.IPNOTE ---
Thin liquids / Minced and moist texture / crushed meds Safe Swallow Strategies 1. Controlled flow cup use for all liquids 2. Cue pt for chin tuck and Effortful Swallow (like swallowing a golf ball for all swallows 3. If pt's voice is wet, cue to cough and then swallow again 4. Remind pt to use strategies 5. Pt should remain upright for 30 minutes after PO intake Pt is at risk for silent aspiration if she swallows too fast or takes multiple swallows in a row
[2024-01-08 20:00] VITALS: BP 144/72; PULSE 69; RESP 16; TEMP 36.3; O2SAT 92
[2024-01-08] MEDS: clonazePAM 0.5 MG TABLET 1 MG PO (21:35)
[2024-01-08] MEDS: APIXABAN 5 MG TABLET 2.5 MG PO (21:36)
[2024-01-09] VITALS (9 sets, daily range): BP systolic 143–163; BP diastolic 68–81; PULSE 73–82; RESP 16–20; TEMP 36–36.6; O2SAT 91–96
[2024-01-09] MEDS: OXYCODONE IR 5 MG TABLET PO ×3 (01:54→20:14)
[2024-01-09] MEDS: PIPERACILLIN/TAZO 3.375 GM in SODIUM CHLORIDE 0.9% 100 ML IV ×3 (01:54→16:46)
[2024-01-09] MEDS: LEVOTHYROXINE 100 MCG TABLET PO (06:18)
[2024-01-09] MEDS: ACETAMINOPHEN 325 MG TABLET 650 MG PO ×2 (07:36→20:13)
--- NOTE | 2024-01-09 08:10 | PM.PN.1 ---
Subjective Subjective Interval history: his is an 88 year old female with recent admission to [facility] for a SDH complicated by respiratory failure due to COVID-19 and probable chronic aspiration. Please see discharge summary noted below. She was admitted for failure to thrive, as well as acute respiratory failure from presumed pneumonia. S: Poor sleep the last 2 nights. She usually takes temazepam at home. She states a low-dose would not really help. She was improved with regards to being more alert and more active. She was able to use the walker to get to the restroom. [facility] can accept her on Friday, and she was willing to go along with this plan for rehabilitation. Her urine culture reveals 3+ organisms. We will continue antibiotics for least 3 days at this point. No dyspnea. She was pain in the lower back and ribs relating to fractures from a recent fall. We will add lidocaine patches today. Met with her daughter and as well as social work and all are in agreement for this plan. Exam Vital Signs (past 8 hours): - 01/09/24 06:00 Temperature 96.8 F L Pulse Rate 82 Respiratory Rate 20 Blood Pressure 161/71 H Pulse Oximetry 93 Oxygen Flow Rate 0 Fraction of Inspired Oxygen 28 SaO2/FiO2 Ratio 328 Oxygen Delivery Method Nasal Cannula Oxygen Flow Rate 0 Narrative Exam Narrative: NAD, alert and oriented. Fluent speech. Lungs are clear, normal rate and effort. Heart is regular, no murmur gallop or rub. Abdomen is soft, non distended. Extremities are free of edema. Objective Labs 01/07/24 03:35 01/07/24 03:35 ON LICENSE OF [facility] Medical History Anxiety and depression Impaired mobility and activities of daily living PAF (paroxysmal atrial fibrillation) Hypothyroidism Social History household members: spouse Smoking Status: Never smoker Assessment & Plan Assessment & Plan narrative: 1. Acute (possibly on chronic) hypoxic respiratory therapy likely due to bacterial, aspiration pneumonia. Present on admission and active. - MAILROOM ASSOCIATE evaluation ordered, appreciate recommendations. Diet changed to dyspagia per their recommendations. Discussed with speech therapist today. - continue zosyn. 5 day course. 2. Acute cystitis vs asymptomatic bacteruria. Present on admission and active. - UA reflexed for culture, continue Zosyn as above. Ur cx: 3 or more colony types Mixed gram + sherrell. Deemed unsuitable for further studies. 3. Acute metabolic encephalopathy, vs chronic cognitive impairment. Present on admission and active. - seemingly improved today, but unclear if due to medications, above infection, or chronic impairment with sundowning / delirium. - watch closely for oversedation at night with clonzepam but can continue, was on higher dose previously. - continue PT/OT and check SLUMS 4. PAF, present on admission and active. - Continue home amiodarone 200mg every other day - Home apixaban 5mg BID - Home metoprolol succinate 50mg daily ? 5. Hypothyroidism, present on admission and active. - Levothyroxine 100 mcg daily 6. HTN, present on admission and active. -continue home amlodipine and metoprolol. ? 7. Depression, present on admission and active. 8. Insomnia, present on admission and active. Holding clonazepam in setting of lethargy. - Home fluoxetine 20 mg daily - ok to continue home clonazepam 1 mg nightly, monitor for worsening encephalopathy. 9. L2 Compression fracture, present on admission and active. 10. Right 9, 10 rib fractures, present on admission and active. PLAN: -diet modifications as noted. -ongoing discharge planning. Patient agrees to some sort of rehab efforts. -physical therapy and occupational therapy assessments to see if she was a candidate for inpatient rehab versus assisted facility. -Zosyn for 5 days (to 01/10). -lidocaine patch to lower back and ribs. -assisted facility, [facility] on Friday when they can accept. Code: Full, surrogate is patient's spouse (given history above this may need to be revisited), alternatively has daughter visiting DVT prophylaxis: on apixaban Dispo: ideally discharge to SNF, SAMY: 01/09. Time-Based Coding :: 20 min spent with patient and on the chart (including review of chart, obtaining history, exam, reviewing outside data, placing orders, documenting exam and treatment plan, and counseling patient) on 01/08.
[2024-01-09] MEDS: APIXABAN 5 MG TABLET 2.5 MG PO ×2 (08:16→20:14)
[2024-01-09] MEDS: FLUoxetine 20 MG CAPSULE PO (08:17)
[2024-01-09] MEDS: METOPROLOL ER 50 MG TABLET PO (08:17)
[2024-01-09] MEDS: AMLODIPINE 5 MG TABLET 10 MG PO (08:17)
[2024-01-09] MEDS: AMIODARONE 200 MG TABLET PO (09:04)
--- NOTE | 2024-01-09 10:40 | PT.IPTN ---
Current Diagnoses Hypothyroidism, unspecified (01/06/24) Depression, unspecified (01/06/24) Anxiety disorder, unspecified (01/06/24) Essential (primary) hypertension (01/06/24) Paroxysmal atrial fibrillation (01/06/24) Pneumonitis due to inhalation of food and vomit (01/06/24) Acute respiratory failure with hypoxia (01/06/24) Adult failure to thrive (01/06/24) Wedge compression fracture of second lumbar vertebra, initial encounter for closed fracture (01/06/24) Other reduced mobility (01/06/24) Other specified health status (01/06/24) Physical Therapy Treatment Note M2 PT-IP Current Condition Start: 01/07/24 15:51 Freq: NEEDED Status: Active Protocol: Document 01/07/24 11:05 AB (Rec: 01/07/24 16:14 AB [id number]) Physical Therapy Current Condition Current Condition Evaluation Date 01/07/24 Treatment Diagnosis adult FTT; respiratory failure ; h/o falls; difficulty in walking Onset Date 01/06/24 M3 PT-IP Subjective Start: 01/07/24 15:51 Freq: NEEDED Status: Active Protocol: Document 01/09/24 10:40 AB (Rec: 01/09/24 13:34 AB [id number]) Subjective Physical Therapy Visit Type Type Treatment Note Visit Start Time 10:40 Visit Stop Time 11:15 Number of CONTAMINATION CONSULTANT Visits 0 Physical Therapy Visit Comments Patient Comments agreeable to do PT Therapy Pain Assessment Pain When Pain Assessed During Mobility Location Lower back Scale Used pain scale not stated Pain Management Techniques Distraction,Modification of Treatment,Re-positioning M4 PT-IP Mobility and Gait Start: 01/07/24 15:51 Freq: NEEDED Status: Active Protocol: Document 01/09/24 10:40 AB (Rec: 01/09/24 13:34 AB [id number]) PT-Bed Mobility Assessment Rolling Type of Rolling Log Rolling Level of Assist Maximal Assistance Supine to Sit Supine to Sit Maximum Assistance PT-Transfer Assessment Sit to and From Stand Sit to and from Stand Maximum Assistance,1 Person Assistance,Use of Upper Extremities Equipment Transfer Assistive Device Gait Belt,Front Wheeled Walker Orthotic/Prosthetic Devices or Brace: No Transfers Transfer Destination Chair Transfer Technique ambulated Transfer Ability Level of Assist Moderate Assistance,Maximum Assistance,1 Person Assistance ,Use of Upper Extremities Comments Mobility Comments pt supine in bed and sleepy. pt agreed to get up. required cues to stay awake. log roll supine to sit max A and max cues. c/o LBP during mobility . able to sit on EOB CGA to min A. increase retrolean and lateral trunk leaning to the L. completed sit to stand max A and max cues and ambulated to the chair using FWW mod to max A and max cues ~ 15 ft. slow pace and unsteady gait. pt agreed to sit up on the chair. unable to ambulate farther. positioned pt on the chair. call light and table placed within reach. Gait Assessment Gait Gait Assistance Required: Moderate Assistance,Maximum Assistance,1 Person Assist Distance (Feet) 15 Able to Maintain Weight Bearing Status Yes During Gait Assistive Devices Assistive Device Gait Belt,Front Wheeled Walker Orthotic/Prosthetic Devices or Brace: No Gait Deviations General Gait Pattern Decreased Stride Length, Decreased Feet Clearance,Step- to Gait Factors Limiting Gait Function Factors Limiting Gait Function Decreased Activity Tolerance, Decreased Strength,Difficulty Following Directions,Limited Range of Motion,Pain,Poor Balance,Poor Safety Awareness M5 PT-IP Objective Assessments Start: 01/07/24 15:51 Freq: NEEDED Status: Active Protocol: Document 01/07/24 11:05 AB (Rec: 01/07/24 16:14 AB [id number]) Orientation Orientation/Cognition Level of Alertness Alert Orientation Name Language Function Ability Hard of Hearing Safety Awareness Decreased Safety Awareness Memory Description Short Term Impaired,Nuclear Equipment Design Engineer Impaired Gross Range of Motion Lower Extremity ROM Assessment Within Functional Limits Strength Lower Extremity Strength Assessment Right Impaired Hip 4-/5 Knee 3+/5 Sensation Assessment Sensation Gross Sensation WNL Muscle Tone Muscle Tone WNL Yes M6 PT-IP Treatment Start: 01/07/24 15:51 Freq: NEEDED Status: Active Protocol: Document 01/09/24 10:40 AB (Rec: 01/09/24 13:34 AB [id number]) Physical Therapy Treatment Education Education Provided Safety M7 PT-IP Assessment and Plan Start: 01/07/24 15:51 Freq: NEEDED Status: Active Protocol: Document 01/09/24 10:40 AB (Rec: 01/09/24 13:34 AB [id number]) PT Summary Assessment and Plan Potential Rehabilitation Potential Fair Summary Impairments Pain,ROM,Strength,Balance, Coordination,Sensation,Tone, Cognition,Bed Mobility, Transfers,Gait,Activity Tolerance Progress Towards Goals Slow Progress due to Activity Tolerance,Slow Progress - Other Assessment Summary pt requiring max A with mobility using FWW and has decrease activity tolerance affecting mobility asssitance. pt requiring increase assistance today compared to yesterdays. pt stated that she has not slept well for 2 days . pt will require SNF rehab to improve mobility and independence. will continue to assess. Goals Bed Mobility Goal Standby Assistance Transfer Goal Standby Assistance,Front Wheeled Walker Gait Goal Standby Assistance,Front Wheel Walker Gait Distance 100 Other Goals improve bed mobility, transfers , ambulation using FWW ~ 150 ft mod I up/down 5 steps B rails SBA Days to Meet Goals 10 Frequency of Treatment Frequency Of Treatment Once a Day Treatment Plan Physical Therapy Treatment Plan Bed Mobility Training,Transfer Training,Gait Training, Therapeutic Exercise,Balance Retraining,Discharge Planning, Hot or Cold Pack,Neuromuscular Re-ed,Coordination Retraining ,Manual Therapy Precautions Lumbar Precautions Log Roll,No Twisting,Limit Bending,Lifting Restriction of 10 lbs,Gait Belt above Incisional Area Other Precautions falls Recommendations To Nursing Amount of Assist Needed 1 Person Assist Discharge Recommendations PT Discharge Recommendations SNF Rehab Transportation Needs at Discharge Private Vehicle,Wheelchair/ Cabulance
[2024-01-09] MEDS: LIDOCAINE 5% PATCH 1 EACH TOP (14:07)
--- NOTE | 2024-01-09 15:08 | ST.IPDYTX ---
Visit Care Team Role Provider Type Brii Flores PA-C Family Provider Non-Staff Primary Care Provider Specialty: Medical Address: [address] [place], [address] Email: Neeta Christensen MD Emergency Provider Physician Referring Provider Specialty: Emergency Medicine Address: [address] [place] [address], [address] Email: [email or web address] MD Admit Provider Physician Attending Provider Specialty: Internal Medicine Address: [address] [place] [address], [address] Email: [email or web address] EYEGLASS FITTER Dysphagia Treatment EYEGLASS FITTER Dysphagia Treatment Start: 01/07/24 13:23 Freq: Status: Active Protocol: Document 01/09/24 14:34 SS (Rec: 01/09/24 15:07 SS [id number]) Dysphagia Treatment Session Time Visit Start Time 12:47 Visit Stop Time 13:30 Total Visit Minutes 43 Visit Information Visit Number 1 Insurance Information Medicare Setting Assessment Location Acute Care Visit Type Note Type Treatment Note Next Note Type Next Note Type Treatment Note Patient Information Identification Type Name,ID Wristband Subjective Observations Pt was sitting upright in armchair upon EYEGLASS FITTER arrival with lunch tray in front of her. She was alert and oriented x4. She recalled MBSS completed yesterday. Treatment Liquids Trialed Thin (IDDSI 0) Solids Trialed Purred (IDDSI 4) Administration Type Controlled Cup Sip,Self- Feeding Oral Strategies Upright at 90 degrees, Controlled Bite/Sip Size Pharyngeal Strategies Sitting Upright (90 deg),Chin Tuck,Effortful Swallow,Small Bites and Sips Treatment Activities Reviewed MBSS results and discussed recommendations. Implemented chin tuck and effortful swallow. The IDDSI Framework Protocol: IDDSI.1 Assessment Patient Response to Treatment Good Rehab Potential Good Assessment of Improvement EYEGLASS FITTER provided education re: typical swallow anatomy and physiology and the results of the MBSS. Utilized a visual diagram to improve patient?s understanding. Patient expressed understanding re: results. Per MBSS, patient presents with moderate-severe pharyngeal phase dysphagia secondary to reduced airway protection given no inversion of epiglottis, incomplete laryngeal vestibular closure, absent pharyngeal stripping wave, partial distention/ duration of PES opening, incomplete BOT retraction, and collection of pharyngeal residue. She demonstrated misty aspiration (silent) x1 of thin liquids and laryngeal penetration x5 with residual contrast remaining in larynx. Vallecular and pharyngeal residue were reduced with cued additional swallows, chin tuck, and effortful swallow. Educated patient re: recommended safe swallow precautions to reduce the risk of aspiration, including small bites, use of flow controlled cup for all liquids , slow rate, and upright positioning during PO intake and for 30 minutes after intake. Additionally reviewed recommendation to utilize chin tuck and effortful swallow with all PO intake. Patient verbalized understanding. Placed visual aids in patient? s room for increased recall, though patient with good recall toward end of session. Instructed patient in the Effortful Swallow to improve tongue to palate contact, base of tongue retraction, hyolaryngeal elevation and excursion, pharyngeal constriction, and opening of the upper esophageal sphincter for improved swallowing safety and efficiency while utilizing chin tuck. Provided education re: form and goal of the exercise for decreased pharyngeal residue. Bolus- driven effortful swallows completed with the following consistencies: 5 ml thin: 6/6 successful swallows; average of 1-2 swallows per bolus. Occasional post-swallow controlled throat clears 5 ml puree: 7/7 successful swallows; average of 1-2 swallows per bolus. Occasional post-swallow controlled throat clears Exercise discontinued prior to completion given patient?s fatigue and poor appetite. Unable to rule out silent aspiration given history. Patient benefited from clinician cueing and modeling during the exercise to slow her rate and press his tongue against the roof of her mouth. EYEGLASS FITTER provided education in utilizing 2 swallows if needed , however, patient completed most trials with 1 swallow and did not express the feeling of residue. EYEGLASS FITTER to continue education re: utilizing multiple swallows to clear residue if needed in following sessions. Reviewed recommendation for 1: 1 supervision and compensatory strategies during PO intake with RN who expressed understanding. Reviewed progress with hospitalist and recommended acute rehab vs. SNF on discharge to target swallowing function. Recommendations Recommendations Continue Current Diet Liquids Order Thin (IDDSI 0) Diet Order Minced & Moist (IDDSI 5) Medication Recommendations As Tolerated,Whole in Carrier, Crushed in Carrier Comments Flow controlled cup for all liquids. Additional Dietary Needs Single Sips,Controlled Sips,No Straws,1:1 Supervision, Encourage to Self-Feed, Reminders to Use Strategies Aspiration Precautions Recommended Precautions Upright at 90 Degrees,Small Bites/Sips,Chin Tuck,Effortful Swallow,Liquids from Cup Additional Precautions Effortful swallow (i.e., like swallowing a golf ball) Treatment Plan Placement Recommendation after Discharge Intermediate Facility, Inpatient Rehab Facility Appropriate for Continued Therapy Yes Therapy Recommendations Continue rehabilitative exercises and compensatory strategies to increase swallowing safety and decrease aspiration risk. Dysphagia Goals STG 1. Patient will utilize chin tuck and effortful swallow in 90% of opportunities with minimal verbal and visual cues in order to consume least restrictive diet texture and meet primary nutrition and hydration needs. STG 2. Patient will consume soft and bite-sized diet texture (SB6) with no overt s/ sx of aspiration in 100% of opportunities in order to consume least restrictive diet and reduce risk of aspiration pneumonia. STG 3. Patient will consume thin liquids with no overt s/ sx of aspiration in 100% of opportunities in order to consume least restrictive diet and reduce risk of aspiration pneumonia. LTG 1. Patient will safely tolerate least restrictive diet consistency to allow for safe consumption of daily meals with minimal s/sx of aspiration.
--- NOTE | 2024-01-09 15:37 | CM.DPNOTE ---
DCP Cont Lengthy conversation with daughter Phyllis smith P [phone] who explains that she and her sister are working with patient's spouse to secure in home caregivers to assist he and patient once patient returns home from SNF. Phyllis will plan to return to [place] soon, date unknown. Patient/spouse have been dividing their time between [place] and [place] and plan to return to [place] as soon as patient is capable of this. Both their children live in [place]. According to Alondra at [facility], patient is accepted as long as family is actively working on the bed bug exterminator care plan for patient and her once patient is ready to discharge [facility] . Patient remains agreeable to short term SNF stay for rehab at [facility]. Plan: Discharge to [facility] anticipated Friday via wheelchair. Alondra at [facility] confirms this plan. Hosp exempt PASRR completed. CM team following closely for coordination of this discharge plan. MIKE
[2024-01-09] MEDS: lisinopriL 5 MG TABLET PO (18:57)
[2024-01-09] MEDS: clonazePAM 0.5 MG TABLET 1 MG PO (20:14)
[2024-01-10] VITALS: BP 140/66; PULSE 65; RESP 15; TEMP 36.4; O2SAT 92
[2024-01-10] MEDS: PIPERACILLIN/TAZO 3.375 GM in SODIUM CHLORIDE 0.9% 100 ML IV ×2 (01:34→10:01)
[2024-01-10] MEDS: LEVOTHYROXINE 100 MCG TABLET PO (05:20)
[2024-01-10] MEDS: ACETAMINOPHEN 325 MG TABLET 650 MG PO (05:32)
[2024-01-10] MEDS: OXYCODONE IR 5 MG TABLET PO (05:32)
[2024-01-10 08:00] VITALS: BP 139/68; PULSE 64; RESP 18; TEMP 36.2; O2SAT 96
--- NOTE | 2024-01-10 08:21 | PC.NURSE ---
Pt arousable to name. Straight cathed at 07:00 by noc shift for 600cc. Spoke with Speech. They will be in at b'fast time to assess Pt. Pt appears restful, RR even and unlaboured, eyes closed.
--- NOTE | 2024-01-10 09:37 | ST.IPDYTX ---
Visit Care Team Role Provider Type Brii Flores PA-C Family Provider Non-Staff Primary Care Provider Specialty: Medical Address: [address] [place], [address] Email: Neeta Christensen MD Emergency Provider Physician Referring Provider Specialty: Emergency Medicine Address: [address] [place] [address], [address] Email: [email or web address] MD Admit Provider Physician Attending Provider Specialty: Internal Medicine Address: [address] [place] [address], [address] Email: [email or web address] ORTHODONTIC TECHNICIAN ASSISTANT Dysphagia Treatment ORTHODONTIC TECHNICIAN ASSISTANT Dysphagia Treatment Start: 01/07/24 13:23 Freq: Status: Active Protocol: Document 01/10/24 09:25 MG (Rec: 01/10/24 09:37 MG [id number]) Dysphagia Treatment Session Time Visit Start Time 08:55 Visit Stop Time 09:25 Total Visit Minutes 30 Visit Information Visit Number 2 Insurance Information Medicare Setting Assessment Location Acute Care Visit Type Note Type Treatment Note Next Note Type Next Note Type Treatment Note Patient Information Identification Type Name,ID Wristband Subjective Observations Pt was resting in bed upon ORTHODONTIC TECHNICIAN ASSISTANT entry. Pt was arousable and open to treatment this morning . Pt was repositioning to an inclined position in bed and set up for breakfast. Treatment Liquids Trialed Thin (IDDSI 0) Solids Trialed Minced & Moist (IDDSI 5) Administration Type Controlled Cup Sip,Self- Feeding Oral Strategies Upright at 90 degrees, Controlled Bite/Sip Size Pharyngeal Strategies Sitting Upright (90 deg),Chin Tuck,Effortful Swallow,Small Bites and Sips Treatment Activities Pt was presented with breakfast that consisted of oatmeal, minced banana with cream, and an ensure drink. Pt requested coffee which was put in her evenflow cup. Pt could report what strategies she needed to use, but required reminders to implement frequently throughout meal. No overt s/sx of aspiration were noted while the pt consumed liquids/ solids at this time. The IDDSI Framework Protocol: IDDSI.1 Assessment Patient Response to Treatment Good Rehab Potential Good Assessment of Improvement ORTHODONTIC TECHNICIAN ASSISTANT provided reminders to use strategies when pt did not independently implement them. Pt is aware of what they are and can use successfully. Visual aids are helpful for the pt. Recommendations Recommendations Continue Current Diet Liquids Order Thin (IDDSI 0) Diet Order Minced & Moist (IDDSI 5) Medication Recommendations As Tolerated,Whole in Carrier, Crushed in Carrier Comments Flow controlled cup for all liquids. Additional Dietary Needs Single Sips,Controlled Sips,No Straws,1:1 Supervision, Encourage to Self-Feed, Reminders to Use Strategies Aspiration Precautions Recommended Precautions Upright at 90 Degrees,Small Bites/Sips,Chin Tuck,Effortful Swallow,Liquids from Cup Additional Precautions Effortful swallow (i.e., like swallowing a golf ball) Treatment Plan Placement Recommendation after Discharge Custodial Facility, Inpatient Rehab Facility Appropriate for Continued Therapy Yes Therapy Recommendations Continue rehabilitative exercises and compensatory strategies to increase swallowing safety and decrease aspiration risk. Dysphagia Goals STG 1. Patient will utilize chin tuck and effortful swallow in 90% of opportunities with minimal verbal and visual cues in order to consume least restrictive diet texture and meet primary nutrition and hydration needs. STG 2. Patient will consume soft and bite-sized diet texture (SB6) with no overt s/ sx of aspiration in 100% of opportunities in order to consume least restrictive diet and reduce risk of aspiration pneumonia. STG 3. Patient will consume thin liquids with no overt s/ sx of aspiration in 100% of opportunities in order to consume least restrictive diet and reduce risk of aspiration pneumonia. LTG 1. Patient will safely tolerate least restrictive diet consistency to allow for safe consumption of daily meals with minimal s/sx of aspiration.
[2024-01-10 09:52] VITALS: BP 155/77; PULSE 76
[2024-01-10] MEDS: FLUoxetine 20 MG CAPSULE PO (09:52)
[2024-01-10] MEDS: METOPROLOL ER 50 MG TABLET PO (09:52)
[2024-01-10] MEDS: LIDOCAINE 5% PATCH 2 EACH TOP (09:56)
[2024-01-10] MEDS: APIXABAN 5 MG TABLET 2.5 MG PO (09:57)
[2024-01-10 09:58] VITALS: BP 155/77; PULSE 76
[2024-01-10] MEDS: lisinopriL 5 MG TABLET PO (09:58)
[2024-01-10] MEDS: AMLODIPINE 5 MG TABLET 10 MG PO (10:00)
--- NOTE | 2024-01-10 10:24 | P.DS_ITS ---
History of Present Illness History of Present Illness Date Patient Seen: 01/10/24 Time Patient Seen: 10:24 Chief complaint: SOB, Failure to thrive Narrative: Per admitting provider, 88 y/o with PMH of A-fib, HTN, Hypothyroidism, recent hospitalization in [place], 1.5 months ago, with SDH, aspiration PNA, PE, who was discharged home as she refused SNF. Yesterday she sustained ground level fall and was taken to [facility] emergency department. At that time patient was found to have fracture of L2 anterosuperior endplate and acute fractures of 9th and 10th ribs. Per review of [facility] ER note patient again declined rehab and hospitalization and requested to go home with home health.. Patient did have saturations of 93- 94% in the hospital.Today, home health came to evaluate the patient in deemed her living situation to be unsafe. 911 was called and patient brought to [facility] for assessment. On admission encephalopathic with evidence of pneumonia. Discharge Providers Provider Date of admission: 01/06/24 21:28 Discharge Date: 01/10/24 Primary care physician: Brii Flores PA-C Consults: 01/07/24 02:14 Consult to Physical Therapy Evaluate & Treat Comment: Physician Instructions: Evaluate and Treat 01/07/24 02:15 Consult to Occupational Therapy Evaluate & Treat Comment: Physician Instructions: Evaluate and treat Consult to Speech Therapy Evaluate & Treat Comment: Physician Instructions: Evaluate and treat Discharge provider: Gregg Guaman DO Summary Hospital Course Discharge Diagnosis: 1. Acute (possibly on chronic) hypoxic respiratory therapy likely due to bacterial, aspiration pneumonia. Present on admission and active. 2. Acute cystitis vs asymptomatic bacteruria. Present on admission and active. 3. Acute metabolic encephalopathy, vs chronic cognitive impairment. Present on admission and active. 4. PAF, present on admission and active. ? 5. Hypothyroidism, present on admission and active. 6. HTN, present on admission and active. 7. Depression, present on admission and active. 8. Insomnia, present on admission and active. 9. L2 Compression fracture, present on admission and active. 10. Right 9, 10 rib fractures, present on admission and active. Hospital Course: This is an 88 year old female with recent admission to [facility] for a SDH complicated by respiratory failure due to COVID-19 and probable chronic aspiration, she was not home long when she was sent to the ER after home health nurse visit for hypoxia. She was admitted with probable aspiration pneumonia and acute respiratory failure with hypoxia. She was treated with antibiotic therapy. She may have also had acute cystitis which was covered with antimicrobial therapy for presumed aspiration pneumonia. She was recommended for SNF after therapy evaluations. She was discharged with a few more days of antibiotic therapy, and had an updated diet recommended by speech therapy. She should continue PT, OT, and speech therapy at SNF. No other changes to her chronic medications were recommended at discharge. Time Spent with Patient Time spent: Greater than 30 minutes Exam Vital Signs (past 8 hours): - 01/10/24 08:00 01/10/24 09:52 01/10/24 09:58 Temperature 97.2 F L Pulse Rate 64 76 76 Respiratory Rate 18 Blood Pressure 139/68 155/77 H 155/77 H Pulse Oximetry 96 Fraction of Inspired Oxygen 28 SaO2/FiO2 Ratio 328 Oxygen Delivery Method Nasal Cannula Oxygen Flow Rate 0 Narrative Exam Narrative: NAD, alert and oriented. Fluent speech. Lungs are clear, normal rate and effort. Heart is regular, no murmur gallop or rub. Abdomen is soft, non distended. Extremities are free of edema. Objective Labs 01/07/24 03:35 01/07/24 03:35 [facility] Medical History Anxiety and depression Impaired mobility and activities of daily living PAF (paroxysmal atrial fibrillation) Hypothyroidism Social History household members: spouse Smoking Status: Never smoker Discharge Plan Discharge Plan Patient Disposition: SNF Transfer to: [facility] Provider Discharge Comment: 88 F with recent admission to [facility] for a SDH, course in acute rehab complicated by COVID with respiratory failure and MICU admission who discharged home and returned with hypoxic respiratory failure. 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 She improved with antibiotic therapies. Recommended for ongoing PT/OT/MEAT AND SEAFOOD MANAGER therapies at [facility]. Has 3 remaining days of augmentin at discharge to complete. Discharge orders & Medications Prescriptions: New amoxicillin-pot clavulanate 875-125 mg tablet 1 tab PO BID 3 Days Qty: 6 0RF lisinopril 5 mg Tablet 5 mg PO DAILY Qty: 30 0RF Continued potassium chloride [Klor-Con 10] 10 MEQ tablet extended release 10 meq PO BID Qty: 0 clonazepam 1 MG tablet 1 mg PO HS Qty: 0 levothyroxine 100 mcg tablet 100 mcg PO DAILY amlodipine 10 mg tablet 10 mg PO DAILY fluoxetine 20 mg capsule 20 mg PO DAILY Eliquis 5 mg tablet 5 mg PO BID amiodarone 200 mg tablet 200 mg PO Q OTHER DAY metoprolol succinate 50 mg tablet extended release 24 hr 50 mg PO DAILY Follow up/Referrals: Brii Flores PA-C [Primary Care Provider] - Discharge Health Status Precautions: [place] Diet/Activity/Treatments Diet: Diet as Tolerated Liquid consistency: Normal/Thin Food texture: Soft Diet comment: IDDSI Level 5 Minced and moist per MEAT AND SEAFOOD MANAGER. Please see MEAT AND SEAFOOD MANAGER recommendations. Activity: As tolerated, no restrictions. Special Rehabilitation Services Reason for rehabilitation: Recovery r/t decondition Rehab type: Physical therapy, Occupational therapy and Speech therapy Visit Report/Discharge Packet Stand Alone Forms: Patient Portal/API Discharge Data Primary Care Provider: Brii Flores
--- NOTE | 2024-01-10 10:48 | CM.DPC ---
DCP Discharge SNF Per MD, pt is medically stable to d/c to SNF today and no identified barriers to discharge and completed d/c packet. SODIUM METHYLATE OPERATOR, completed further swallow today with pt and she is making improvements and able to recall the recommendations of lawrence renee and sahra shi. SW called [facility] admissions and confirmed since anticipated d/c today was held, they could accept pt today rather than initially planned for tomorrow. They can transport pt around 1300 today. STU met bedside with pt and explained role and updated on above and she confirms she is agreeable with d/c to [facility] today and agreeable with SW calling her spouse and Dtr Phyllis to update. STU called spouse Yann and he confirms he is currently at the bus station with their Dtr Phyllis and agreeable with d/c to [facility] today and Dtr flying back to [place] this morning and spouse will be bedside around 1100 and will bring pt some clothing and spoke to pt via phone as well. STU updated RN, Skin Lap Bonder and BATTERY CHARGER. Faxed signed med list, script, signed MD MARCELINO orders and d/c summ to [facility] to review. Plan: Patient to d/c to [facility] for rehab today around 1300 via facility w/c before return home and truck terminal manager planning in the process with Dtr assist. SCOTT Morley
--- NOTE | 2024-01-10 11:35 | PT.IPTN ---
Current Diagnoses Hypothyroidism, unspecified (01/06/24) Depression, unspecified (01/06/24) Anxiety disorder, unspecified (01/06/24) Essential (primary) hypertension (01/06/24) Paroxysmal atrial fibrillation (01/06/24) Pneumonitis due to inhalation of food and vomit (01/06/24) Acute respiratory failure with hypoxia (01/06/24) Adult failure to thrive (01/06/24) Wedge compression fracture of second lumbar vertebra, initial encounter for closed fracture (01/06/24) Other reduced mobility (01/06/24) Other specified health status (01/06/24) Physical Therapy Treatment Note M2 PT-IP Current Condition Start: 01/07/24 15:51 Freq: NEEDED Status: Active Protocol: Document 01/07/24 11:05 AB (Rec: 01/07/24 16:14 AB [id number]) Physical Therapy Current Condition Current Condition Evaluation Date 01/07/24 Treatment Diagnosis adult FTT; respiratory failure ; h/o falls; difficulty in walking Onset Date 01/06/24 M3 PT-IP Subjective Start: 01/07/24 15:51 Freq: NEEDED Status: Active Protocol: Document 01/10/24 11:35 AB (Rec: 01/10/24 12:49 AB [id number]) Subjective Physical Therapy Visit Type Type Treatment Note Visit Start Time 11:35 Visit Stop Time 12:00 Number of TECHNICAL SERVICE REPRESENTATIVE Visits 0 Physical Therapy Visit Comments Patient Comments agreeable to do PT M4 PT-IP Mobility and Gait Start: 01/07/24 15:51 Freq: NEEDED Status: Active Protocol: Document 01/10/24 11:35 AB (Rec: 01/10/24 12:49 AB [id number]) PT-Transfer Assessment Sit to and From Stand Sit to and from Stand Contact Guard Assistance, Minimal Assistance,1 Person Assistance,Use of Upper Extremities Equipment Transfer Assistive Device Gait Belt,Front Wheeled Walker Orthotic/Prosthetic Devices or Brace: No Comments Mobility Comments pt sitting up on the chair. family in room. pt agreed to do PT. completed sit to stand from the chair CGA to min A and max cues for techniques. pt ambulated in room ~ 35 ft using FWW CGA to min A towards end of ambulation. max cues for posture and safety. pt with stooped posture and increase lateral L sided leaning. pt rested on the chair. agreed to walk again. sit to stand min A and max cues. ambulated in room using FWW ~ 40 ft min A and cues. slower paced gait compared to first attempt. pt sat back on chair. positioned pt on the chair for lunch. call light within reach. Gait Assessment Gait Gait Assistance Required: Contact Guard Assist,Minimum Assistance Distance (Feet) 40 Able to Maintain Weight Bearing Status Yes During Gait Assistive Devices Assistive Device Gait Belt,Front Wheeled Walker Orthotic/Prosthetic Devices or Brace: No Gait Deviations General Gait Pattern Decreased Stride Length, Decreased Feet Clearance, Flexed Trunk,Step-to Gait Factors Limiting Gait Function Factors Limiting Gait Function Decreased Activity Tolerance, Decreased Strength,Difficulty Following Directions,Limited Range of Motion,Pain,Poor Balance,Poor Safety Awareness M5 PT-IP Objective Assessments Start: 01/07/24 15:51 Freq: NEEDED Status: Active Protocol: Document 01/07/24 11:05 AB (Rec: 01/07/24 16:14 AB [id number]) Orientation Orientation/Cognition Level of Alertness Alert Orientation Name Language Function Ability Hard of Hearing Safety Awareness Decreased Safety Awareness Memory Description Short Term Impaired,Correction Impaired Gross Range of Motion Lower Extremity ROM Assessment Within Functional Limits Strength Lower Extremity Strength Assessment Right Impaired Hip 4-/5 Knee 3+/5 Sensation Assessment Sensation Gross Sensation WNL Muscle Tone Muscle Tone WNL Yes M6 PT-IP Treatment Start: 01/07/24 15:51 Freq: NEEDED Status: Active Protocol: Document 01/10/24 11:35 AB (Rec: 01/10/24 12:49 AB [id number]) Physical Therapy Treatment Education Education Provided Safety M7 PT-IP Assessment and Plan Start: 01/07/24 15:51 Freq: NEEDED Status: Active Protocol: Document 01/10/24 11:35 AB (Rec: 01/10/24 12:49 AB [id number]) PT Summary Assessment and Plan Potential Rehabilitation Potential Fair Summary Impairments Pain,ROM,Strength,Balance, Coordination,Sensation,Tone, Cognition,Bed Mobility, Transfers,Gait,Activity Tolerance Progress Towards Goals Slow Progress due to Activity Tolerance Assessment Summary pt progressing slowly with mobility and able to ambulate ~ 40 ft using FWW CGA to min A and max cues. pt will continue to need / assist and will benefit from SNF rehab. Goals Bed Mobility Goal Standby Assistance Transfer Goal Standby Assistance,Front Wheeled Walker Gait Goal Standby Assistance,Front Wheel Walker Gait Distance 100 Other Goals improve bed mobility, transfers , ambulation using FWW ~ 150 ft mod I up/down 5 steps B rails SBA Days to Meet Goals 10 Frequency of Treatment Frequency Of Treatment Once a Day Treatment Plan Physical Therapy Treatment Plan Bed Mobility Training,Transfer Training,Gait Training, Therapeutic Exercise,Balance Retraining,Discharge Planning, Hot or Cold Pack,Neuromuscular Re-ed,Coordination Retraining ,Manual Therapy Precautions Lumbar Precautions Log Roll,No Twisting,Limit Bending,Lifting Restriction of 10 lbs,Gait Belt above Incisional Area Other Precautions falls Recommendations To Nursing Amount of Assist Needed 1 Person Assist Discharge Recommendations PT Discharge Recommendations SNF Rehab Transportation Needs at Discharge Private Vehicle,Wheelchair/ Cabulance
[2024-01-10 12:00] VITALS: BP 135/68; PULSE 75; RESP 22; TEMP 36.6; O2SAT 94
== END 2024-01-10 13:26 | DRG 177 ==
LOC: ED 20:54 → AC 21:28
PROVIDERS: Internal Medicine; Admitting Provider Internal Medicine; Emergency Provider Emergency Medicine; Family Provider Physician Assistant; PCP Physician Assistant; Referring Provider Emergency Medicine; Visit Provider Internal Medicine
DX: J69.0 Pneumonitis due to inhalation of food and vomit (principal); G93.41 Metabolic encephalopathy; J96.21 Acute and chronic respiratory failure with hypoxia; S22.41XA Multiple fractures of ribs, right side, initial encounter for closed fracture; S32.029A Unspecified fracture of second lumbar vertebra, initial encounter for closed fracture; Z68.1 Body mass index [BMI] 19.9 or less, adult; N30.00 Acute cystitis without hematuria; R62.7 Adult failure to thrive; I10 Essential (primary) hypertension; E03.9 Hypothyroidism, unspecified; I48.0 Paroxysmal atrial fibrillation; F41.9 Anxiety disorder, unspecified; F32.A Depression, unspecified; R29.6 Repeated falls; G47.00 Insomnia, unspecified; J15.9 Unspecified bacterial pneumonia; G31.84 Mild cognitive impairment of uncertain or unknown etiology; W18.30XA Fall on same level, unspecified, initial encounter; Z74.09 Other reduced mobility; Z86.711 Personal history of pulmonary embolism; Z79.01 Long term (current) use of anticoagulants
CPT/HCPCS: 36415; 71045; 74230; 80048; 80053; 81001; 82550; 83880; 84145; 84484; 85025; 85610; 87086; 92526; 92610; 92611; 93005; 93010; 94762; 96365; 96367; 97116; 97129; 97130; 97162; 97167; 97530; 97535; 99284; J0696; J2543

== ENCOUNTER 2024-03-09 23:17 | Emergency (ER) | payer MEDICARE, OTHER, SELFPAY ==
[2024-01-06 22:59] VITALS: BMI 19.0
[2024-03-09 23:21] VITALS: BP 141/67; PULSE 80; RESP 16; TEMP 36.4; O2SAT 92; BMI 18.8
--- NOTE | 2024-03-09 23:36 | DI.RAD.S_ITS ---
PROCEDURE: XR FEMUR LT MIN 2V INDICATIONS: L thigh pain after fall TECHNIQUE: 2 views of the femur were acquired. COMPARISON: None. FINDINGS: Bones: Partially seen knee degenerative changes. No acute fracture of the femoral shaft. Soft tissues: No suspicious calcifications. IMPRESSION: No acute fracture of the femoral shaft. Partially seen knee degenerative changes. If there is high concern for occult injury, consider repeat radiography or cross-sectional imaging. Dictated by: Wu Jackson M.D. on 03/10/2024 at 0:19 Approved by: Wu Jackson M.D. on 03/10/2024 at 0:20
--- NOTE | 2024-03-09 23:36 | DI.RAD.S_ITS ---
PROCEDURE: XR HIP W PEL IF DONE LT 2V INDICATIONS: L hip pain after fall TECHNIQUE: 2 views of the hip were acquired. COMPARISON: None. FINDINGS: Bones: There is a questionable nondisplaced lucency at the superior aspect of the left greater trochanter. Otherwise, no displaced fracture of the femoral neck. No hip dislocation questionable irregularity is also seen at the left superior pubic ring. Background moderate hip arthrosis. Lumbosacral degenerative changes also seen. Soft tissues: Pelvic calcifications are probably phleboliths. IMPRESSION: Questionable lucency seen at this left superior greater trochanter, and left superior pubic ring. If there is sufficient concern, consider further evaluation with CT or MRI Dictated by: Wu Jackson M.D. on 03/10/2024 at 0:20 Approved by: Wu Jackson M.D. on 03/10/2024 at 0:21
--- NOTE | 2024-03-09 23:47 | PC.NURSE ---
Pt to imaging via stretcher with tech
--- NOTE | 2024-03-09 23:49 | ED_ITS ---
HPI - Extremity Injury (Lower) General Chief Complaint: Extremity Injury, Lower Stated Complaint: GLF Time Seen by Provider: 03/09/24 23:34 Source: patient and EMS Mode of arrival: EMS History of Present Illness HPI Narrative: Patient is an 88-year-old female who is here for evaluation of left hip/leg pain. A couple days ago she was ambulating with her walker when she is at baseline. She tried to go into the restroom that had a narrow door and hit her walker which caused her to fall landing on her left hip. She has been ambulatory since then but has had increasing pain in her left hip and left thigh since that time. Physical therapy came to see her today and she could not participate because of the amount of discomfort that she was in. She was also having a hard time walking because of the discomfort. No other injuries from the event. She did not hit her head. No loss of consciousness. Not on anticoagulation. Related Data Home Medications Medication Instructions Recorded Confirmed clonazepam 1 mg tablet 1 mg PO HS ##0 02/27/17 01/06/24 potassium chloride 10 mEq 10 meq PO BID ##0 02/27/17 01/06/24 tablet,extended release (Klor-Con) amiodarone 200 mg tablet 200 mg PO Q OTHER DAY 01/06/24 01/06/24 amlodipine 10 mg tablet 10 mg PO DAILY 01/06/24 01/06/24 apixaban 5 mg tablet (Eliquis) 5 mg PO BID 01/06/24 01/06/24 fluoxetine 20 mg capsule 20 mg PO DAILY 01/06/24 01/06/24 levothyroxine 100 mcg tablet 100 mcg PO DAILY 01/06/24 01/06/24 metoprolol succinate 50 mg 50 mg PO DAILY 01/06/24 01/06/24 tablet,extended release 24 hr Previous Rx's Medication Instructions Recorded lisinopril 5 mg tablet 5 mg PO DAILY #30 tabs 01/10/24 hydrocodone 5 mg-acetaminophen 325 1 tab PO Q6H PRN pain #10 tabs 03/10/24 mg tablet Allergies Allergy/AdvReac Type Severity Reaction Status Date / Time adhesive tape [ADHESIVE TAPE] Allergy Intermediate ITCHY Verified 01/07/24 01:56 PAPER/SILK TAPE OK Latex, Natural Rubber Allergy Intermediate PT UNSURE Verified 09/04/24 01:56 [LATEX, NATURAL RUBBER] MAY CAUSE ITCHING, RASH celecoxib [From CELEBREX] AdvReac Severe FLU-LIKE Verified 01/07/24 01:56 SYMPTOMS Review of Systems Review of Systems Narrative: See HPI Patient History Medical History Anxiety and depression Impaired mobility and activities of daily living PAF (paroxysmal atrial fibrillation) Hypothyroidism Social History household members: spouse Smoking Status: Never smoker Smoking Status: Never smoker Substance Use Type: does not use Exam Initial Vital Signs Initial Vital Signs: Vital Signs Temperature 97.6 F 03/09/24 23:21 Pulse Rate 80 03/09/24 23:21 Respiratory Rate 16 03/09/24 23:21 Blood Pressure 141/67 H 03/09/24 23:21 Pulse Oximetry 92 03/09/24 23:21 Oxygen Delivery Method Room Air 03/09/24 23:21 Const General: cooperative, comfortable and No ill appearing HENMT Head: normal to inspection and normocephalic Resp Effort & Inspection: normal respiratory effort Cardio Rate: regular rate Skin General: no rashes or lesions noted Neuro General: patient alert and patient awake Extrem Other: Tenderness to palpation lateral aspect of the left hip over the greater trochanter and also left lateral leg. The left knee and left ankle were unremarkable. Course Orders Ordered: ED Orders 03/09/24 23:36 XR femur LT min 2V Stat XR hip w pel if done LT 2V Stat 03/10/24 00:29 CT pelvis wo con Stat Discontinued Medications Hydrocodone Bitart/Acetaminophen (Hydrocodone/Acet 5/325 Tablet) 1 tab PO NOW ONE Stop: 03/10/24 01:28 Last Admin: 03/10/24 01:30 Dose: 1 tab Documented By: LS Vital Signs Vital signs: Vital Signs - 8 hr 03/09/24 23:21 03/10/24 00:49 Temperature 97.6 F Pulse Rate 80 75 Respiratory Rate 16 16 Blood Pressure 141/67 H 140/65 Pulse Oximetry 92 93 Oxygen Delivery Method Room Air MDM - Extremity Injury (Lower) Imaging Data Extremity x-ray #1: Radiologist's Impression: PROCEDURE: XR HIP W PEL IF DONE LT 2V INDICATIONS: L hip pain after fall TECHNIQUE: 2 views of the hip were acquired. COMPARISON: None. FINDINGS: Bones: There is a questionable nondisplaced lucency at the superior aspect of the left greater trochanter. Otherwise, no displaced fracture of the femoral neck. No hip dislocation questionable irregularity is also seen at the left superior pubic ring. Background moderate hip arthrosis. Lumbosacral degenerative changes also seen. Soft tissues: Pelvic calcifications are probably phleboliths. IMPRESSION: Questionable lucency seen at this left superior greater trochanter, and left superior pubic ring. If there is sufficient concern, consider further evaluation with CT or MRI Extremity x-ray #2: Radiologist's Impression: PROCEDURE: XR FEMUR LT MIN 2V INDICATIONS: L thigh pain after fall TECHNIQUE: 2 views of the femur were acquired. COMPARISON: None. FINDINGS: Bones: Partially seen knee degenerative changes. No acute fracture of the femoral shaft. Soft tissues: No suspicious calcifications. IMPRESSION: No acute fracture of the femoral shaft. Partially seen knee degenerative changes. If there is high concern for occult injury, consider repeat radiography or cross-sectional imaging. CT scan pelvis: Radiologist's Impression: PROCEDURE: CT PEL WO CON INDICATIONS: eval for pubic ring and prox femur fracture TECHNIQUE: Noncontrast 3 mm axial sections acquired through the bony pelvis, with coronal and sagittal reformatting. COMPARISON: [facility], CR, XR HIP W PEL IF DONE LT 2V, 03/09/2024, 23:36. FINDINGS: Image quality: Diagnostic Bones: A nondisplaced fracture lucency is seen at the superior greater trochanter. No acute pelvic ring disruption. Background degenerative changes, overall [id number]. Soft tissues: Edema is seen around the left proximal femur. Colonic diverticu la. Possible wall thickening of the rectum. Pelvic calcifications may be senescent, indeterminate however on this CT. There is a fluid collection in the left posterior vulva measuring 2.1 cm. Vascular calcifications and colonic diverticula IMPRESSION: Nondisplaced fracture of the left superior greater trochanter, possibly related to avulsion from the abductor tendon attachment. No acute pelvic ring disruption. Background degenerative changes. Incidentally noted 2.1 cm cystic lesion/fluid collection at the left posterior vulva, possibly a Bartholin cyst. Consider correlation with clinical exam. Possible wall thickening of the rectum may represent proctitis. Colonic diverticula are also seen. MDM Narrative Medical decision making narrative: X-ray shows what appears to be a greater trochanter fracture. No femoral neck fracture. No intertrochanteric fracture. Pelvic CT scan shows no pelvic fracture. Discussed the case with Dr. Bhatt on-call orthopedist who stated that this injury is weight-bearing as tolerated. Patient has a walker at home. Did discuss this with her. Will discharge home with pain medication. She was given return precautions. She expressed understanding and agreement with plan. Discharge Plan Departure Patient Disposition: Home Clinical Impression: Closed fracture of greater trochanter of left femur Activity Restrictions/Additional Instructions: You can walk on your left leg as tolerated. You are probably need to continue to use your walker. Use the pain medication as needed. Contact your primary care doctor for follow-up. Prescriptions: New hydrocodone-acetaminophen 5-325 mg tablet 1 tab PO Q6H PRN (Reason: pain) Qty: 10 0RF No Action potassium chloride [Klor-Con 10] 10 MEQ tablet extended release 10 meq PO BID Qty: 0 clonazepam 1 MG tablet 1 mg PO HS Qty: 0 levothyroxine 100 mcg tablet 100 mcg PO DAILY amlodipine 10 mg tablet 10 mg PO DAILY fluoxetine 20 mg capsule 20 mg PO DAILY Eliquis 5 mg tablet 5 mg PO BID amiodarone 200 mg tablet 200 mg PO Q OTHER DAY metoprolol succinate 50 mg tablet extended release 24 hr 50 mg PO DAILY lisinopril 5 mg Tablet 5 mg PO DAILY Qty: 30 0RF Referrals: Brii Flores PA-C [Primary Care Provider] - Stand Alone Forms: Patient Portal/API/Survey
[2024-03-10] VITALS (12 sets, daily range): BP systolic 135–165; BP diastolic 63–77; PULSE 72–94; RESP 16; TEMP 36.6; O2SAT 91–93
--- NOTE | 2024-03-10 00:29 | DI.CT.S_ITS ---
PROCEDURE: CT PEL WO CON INDICATIONS: eval for pubic ring and prox femur fracture TECHNIQUE: Noncontrast 3 mm axial sections acquired through the bony pelvis, with coronal and sagittal reformatting. COMPARISON: [facility], CR, XR HIP W PEL IF DONE LT 2V, 03/09/2024, 23:36. FINDINGS: Image quality: Diagnostic Bones: A nondisplaced fracture lucency is seen at the superior greater trochanter. No acute pelvic ring disruption. Background degenerative changes, overall [id number]. Soft tissues: Edema is seen around the left proximal femur. Colonic diverticula. Possible wall thickening of the rectum. Pelvic calcifications may be senescent, indeterminate however on this CT. There is a fluid collection in the left posterior vulva measuring 2.1 cm. Vascular calcifications and colonic diverticula IMPRESSION: Nondisplaced fracture of the left superior greater trochanter, possibly related to avulsion from the abductor tendon attachment. No acute pelvic ring disruption. Background degenerative changes. Incidentally noted 2.1 cm cystic lesion/fluid collection at the left posterior vulva, possibly a Bartholin cyst. Consider correlation with clinical exam. Possible wall thickening of the rectum may represent proctitis. Colonic diverticula are also seen. Dictated by: Wu Jackson M.D. on 03/10/2024 at 0:53 Approved by: Wu Jackson M.D. on 03/10/2024 at 0:57
--- NOTE | 2024-03-10 00:47 | PC.NURSE ---
Pt to imaging via stretcher with RN and tech
[2024-03-10] MEDS: HYDROCODONE/ACET 5/325 TABLET 1 TAB PO ×2 (01:30→13:21)
--- NOTE | 2024-03-10 02:44 | PC.NURSE ---
Pt resting quietly with eyes closed, resps even and not labored. No adverse reactions to administered medication. No distress noted at this time.
--- NOTE | 2024-03-10 04:50 | PC.NURSE ---
Pt resting quietly with eyes closed, resps even and not labored. No distress noted at this time.
--- NOTE | 2024-03-10 05:40 | PC.NURSE ---
No change in patient condition or status. Pt resting quietly with eyes closed. Resps even and not labored. No distress noted at this time.
--- NOTE | 2024-03-10 09:10 | PT.IIE ---
Medical History (Last Reviewed 03/10/24 @ 02:59 by Jalil Weaver DO) Anxiety and depression Hypothyroidism Impaired mobility and activities of daily living PAF (paroxysmal atrial fibrillation) Physical Therapy Inpatient Evaluation/Re-Eval M1 PT/OT-IP Prior Functional Status Start: 03/10/24 11:43 Freq: Status: Active Protocol: Document 03/10/24 09:10 AB (Rec: 03/10/24 11:59 AB [id number]) Medical Review Prior Functional Status Medical History Reviewed Yes Communication able to make needs known; slow to respond to questions Mobility and Gait pt stated that she is modified independent with all mobilities and ambulation using a FWW Social History Household Members spouse Number of Floors (Floors) One Floor Number of Stairs To Enter/Railing? 5 steps B rails to enter the house Home Environment Standard Height Toilet,Walk in Shower Home Equipment Front Wheel Walker,Raised Toilet Seat w/Armrests,Shower Seat with Backrest,Hand Held Shower,Grab Bars Near Toilet, Grab Bars In Shower M2 PT-IP Current Condition Start: 03/10/24 11:43 Freq: Status: Active Protocol: Document 03/10/24 09:10 AB (Rec: 03/10/24 11:59 AB [id number]) Physical Therapy Current Condition Current Condition Evaluation Date 03/10/24 Treatment Diagnosis GLF; L hip greater trochanter fx; difficulty in walking Onset Date 03/10/24 M3 PT-IP Subjective Start: 03/10/24 11:43 Freq: Status: Active Protocol: Document 03/10/24 09:10 AB (Rec: 03/10/24 11:59 AB [id number]) Subjective Physical Therapy Visit Type Type Initial Evaluation Visit Start Time 09:10 Visit Stop Time 09:45 Number of CASE FITTER Visits 0 Physical Therapy Visit Comments Patient Comments agreeable to do PT Therapy Pain Assessment Pain When Pain Assessed During Mobility Pain Present Pain Present Pain Reported Location Left Hip Intensity 9 Scale Used Numeric (0 - 10) Pain Management Techniques Distraction,Modification of Treatment,Re-positioning, Timing of Activity with Medications M4 PT-IP Mobility and Gait Start: 03/10/24 11:43 Freq: Status: Active Protocol: Document 03/10/24 09:10 AB (Rec: 03/10/24 11:59 AB [id number]) PT-Bed Mobility Assessment Supine to Sit Supine to Sit Maximum Assistance,1 Person Assistance,Head of Bed Elevated Sit to Supine Sit to Supine Total Assistance,1 Person Assistance,2 Person Assistance Scooting Scooting to Edge of Bed Maximum Assistance PT-Transfer Assessment Sit to and From Stand Sit to and from Stand Maximum Assistance,1 Person Assistance,Use of Upper Extremities Equipment Transfer Assistive Device Gait Belt,Front Wheeled Walker Orthotic/Prosthetic Devices or Brace: No Comments Mobility Comments pt supine in bed and agreeable to do PT. obtained PLOF and home set up. BP: 170/68 pt completed supine to sit max A and max cues with HOB elevated . pt able to sit on EOB mod A for sitting balance. increase retrolean in sitting. completed sit to stand max A and max cues and instructed to take a step but pt unable. c/ o increase L hip pain and unable to walk. attempted to take a step x 3. pt sat back on EOB. max A for scooting to bed. total A for sit to supine . max A for positioning in bed. call light and table placed within reach. pt requesting for pain meds. informed nurse regarding pt's mobility assistance and request for pain meds. Gait Assessment Comments Gait Comments unable at this time PT-Balance Assessment Sitting Balance and Reactions Static Sitting Balance Ability Fair Dynamic Sitting Balance Ability Fair Standing Balance and Reactions Static Standing Balance Ability Poor Dynamic Standing Balance Ability Poor Device Used FWW M5 PT-IP Objective Assessments Start: 03/10/24 11:43 Freq: Status: Active Protocol: Document 03/10/24 09:10 AB (Rec: 03/10/24 11:59 AB [id number]) Orientation Orientation/Cognition Level of Alertness Alert Orientation Name Safety Awareness Decreased Safety Awareness Memory Description Short Term Impaired Gross Range of Motion Lower Extremity ROM Assessment Within Functional Limits Strength Lower Extremity Strength Assessment Bilaterally Impaired Hip 3+/5 Knee 4-/5 Coordination Assessment Gross Coordination Gross Coordination WNL Sensation Assessment Sensation Gross Sensation WNL Muscle Tone Muscle Tone WNL Yes M6 PT-IP Treatment Start: 03/10/24 11:43 Freq: Status: Active Protocol: Document 03/10/24 09:10 AB (Rec: 03/10/24 11:59 AB [id number]) Physical Therapy Treatment Education Education Provided Safety M7 PT-IP Assessment and Plan Start: 03/10/24 11:43 Freq: Status: Active Protocol: Document 03/10/24 09:10 AB (Rec: 03/10/24 11:59 AB [id number]) PT Summary Assessment and Plan Potential Rehabilitation Potential Fair Status of Condition at Evaluation Evolving Summary Impairments Pain,ROM,Strength,Balance, Coordination,Sensation,Tone, Cognition,Bed Mobility, Transfers,Gait,Activity Tolerance Assessment Summary pt is an 88 y/o F who presented to the ED s/p fall. pt found to have L hip greater trochanter fx. Per ED doctor : full weight bearing on LLE. pt requiring max A to total A for bed mobility and max A for sit to stand . pt unable to take steps to transfer or ambulate at this time due to c /o increase L hip pain in standing. pt will benefit from SNF rehab. Goals Bed Mobility Goal Minimal Assistance Transfer Goal Minimal Assistance,Front Wheeled Walker Gait Goal Minimal Assistance,Front Wheel Walker Gait Distance 50 Other Goals improve bed mobility, transfers, ambulation using FWW ~ 200 ft SBA up/down 5 steps B rails SBA Days to Meet Goals 10 Frequency of Treatment Frequency Of Treatment Once a Day Treatment Plan Physical Therapy Treatment Plan Bed Mobility Training,Transfer Training,Gait Training, Therapeutic Exercise,Balance Retraining,Post Op Education, Discharge Planning,Hot or Cold Pack,Neuromuscular Re-ed, Coordination Retraining,Manual Therapy Weight Bearing Status Weight Bearing Status Full Weight Bearing Allowed Weight Bearing Amount (enter % LLE FWB or #) (%) Recommendations To Nursing Amount of Assist Needed Mechanical Lift Discharge Recommendations PT Discharge Recommendations SNF Rehab Transportation Needs at Discharge Wheelchair/Cabulance,Stretcher /Ambulance
--- NOTE | 2024-03-10 09:11 | PC.NURSE ---
Pt reports fall on Friday. Pain in left hip. Pt reports feeling stiff and not able to bear weight well on the left leg. Pt reports it was a mechanical fall on Friday. Pt states she does not have a fall bracelet but has five falls as of recently.
--- NOTE | 2024-03-10 15:59 | CM.SWNOTE ---
ED PROJECT MANAGEMENT ENGINEER Assessment Note: Patient is a 88yo female, resident of [place], presented to the ED today due to a GLF on Friday and generalized weakness. PROJECT MANAGEMENT ENGINEER was consulted to assist with home health referral and other community supports. PROJECT MANAGEMENT ENGINEER reviewed chart and discussed pt with ED Provider; it is identified that pt was admitted 01/2024 for reoccurring falls which resulted in a compression fx and ultimately a transfer to [facility]. PCP: Brii Flores PA-C Insurance: Medicare and [employer] ED PROJECT MANAGEMENT ENGINEER entered room, introduced self and role. Present in the room were pt's family friends who live in [place]. Pt reports being in the services of [facility] health, especially with PT who comes to her home 2x/week. Pt also reports that she was notified by PT that her allotted sessions will end soon, pt is requesting another order for HH. Pt explains she would like to have more assistance at home as she still experiences more weakness but is still very motivated to rehabilitate to get back to baseline. Per pt, she was walking an average of 2miles/day prior to her admission in January and very active, independent otherwise. ED PROJECT MANAGEMENT ENGINEER discussed what services would be beneficial with HH referral. Pt agreed to PROJECT MANAGEMENT ENGINEER (to assist with care coordination, possibly hiring more caregivers for herself and wheelchair-bound ), RN (medication management), PT/OT (strength building, teach DME) and HH Aide (personal care). ED PROJECT MANAGEMENT ENGINEER called [facility] Intake line and it was confirmed that pt is on their service for RN, PT, ST. ED PROJECT MANAGEMENT ENGINEER forwarded clinicals from today's presentation as well as new signed orders by ED Provider to [facility] via [employer]. ED PROJECT MANAGEMENT ENGINEER discussed this with pt and family friends who verbalized understanding. ED PROJECT MANAGEMENT ENGINEER provided non-emergency line for [facility] and discussed Lift Assist program due to pt's generalized weakness. Pt appreciative. Plan: Pt to discharge home with family, follow up with [facility] for PT, OT, PROJECT MANAGEMENT ENGINEER, HH Aide, and RN. XIOMARA Milligan
== END 2024-03-10 13:23 | disposition home or self-care (01) ==
PROVIDERS: Emergency Provider Emergency Medicine; Family Provider Physician Assistant; PCP Physician Assistant
DX: S72.112A Displaced fracture of greater trochanter of left femur, initial encounter for closed fracture (principal); W18.30XA Fall on same level, unspecified, initial encounter
CPT/HCPCS: 72192; 73502; 73552; 97162; 97530; 99283; 99284

== ENCOUNTER → 2025-01-18 11:12 | Outpatient (CLI) | payer MEDICARE, OTHER, SELFPAY ==
[2024-01-06 22:59] VITALS: BMI 19.0
--- NOTE | 2025-01-18 14:51 | ST.SWALLOW ---
Visit Care Team Role Provider Type Brii Flores PA-C Family Provider Non-Staff Primary Care Provider Specialty: Medical Address: [address] [place], [address] Email: JACKY Velázquez Attending Provider Non-Staff Referring Provider Specialty: Family Practice Address: [address] [place], [address] Email: Modified Barium Swallow Study AUTOMATIC SEAMER Modified Barium Swallow Study Start: 01/18/25 13:23 Freq: Status: Active Protocol: Document 01/18/25 13:23 LNK (Rec: 01/18/25 14:50 LNK Desktop) Modified Barium Swallow Study Total Time Visit Start Time 11:00 Visit Stop Time 11:45 Total Visit Minutes [address] Aranda Reason for Referral dysphagia Setting Setting Outpatient Care Patient Information Identification Type Name,Date of Patient History Pt was seen for a Modified Barium Swallow Study due to concerns re: aspiration risk. Pt santiago PMH that includes recurrent aspiration pneumonia, acute hypoxic respiratory failure, ACDF and adult failure to thrive. Pt reported that following her ACDF surgery C3-C7), she has experienced neck pain, difficulty with her voice and swallowing problems. additionally, in November 2023, the pt suffered a fall resulting in a subdural hematoma. She was airlifted to [facility], where she was admitted for [address] Chin, Neurologist, who diagnosed cognitive impairment, agraphia and alexia and memory loss. Pt has experienced multiple falls at home. She has nearly 24 hour caregivers at her home. Pt was seen for prior MBSSs on 03/21/17 and 01/08/2024. The AUTOMATIC SEAMER results for the 2016 MBSS were not available for review. In 2023, the pt was admitted for acute hypoxemic respiratory failure. An MBSS was ordered while inpatient. The results indicated Moderate to severe pharyngeal phase dysphagia secondary to reduced airway protection, no epiglottal inversion for liquids, inconsistent inversion for solids/semisolids, no bolus control through pharynx. Pt at risk for aspiration of large liquid boluses and/or sequential swallows as well as the pooled residue observed in the vallecula following solid/semisolid trials. A repeat MBSS was ordered secondary to pt diagnosed with recurrent aspiration pneumonia and to determine current risk for aspiration. Pt and caregiver report frequent coughing and choking when she eats/drinks. More difficulty with liquids was described. Subjective Pt was seated in the flouroscopy chair with directions Observations and procedures explained for him. He indicated he understood and agreed to proceed. Patient Positioning Position View Lat-A/P Imaging Lateral View Textures Administered Trials Presented Thin Liquid via Spoon (IDDSI 0),Thin Liquid via Cup ( IDDSI 0),Extremely Thick Liquid via Spoon (IDDSI 4), Easy to Chew (IDDSI 7) Barium Tablet Yes The IDDSI Framework Protocol: IDDSI.1 Oral Impairment Source: The Modified Barium Swallow Impairment Profile (MBSImP??) Lip Closure Interlabial escape; no progression to anterior lip Tongue Control Cohesive bolus between tongue to palatal seal During Bolus Hold Bolus Preparation/ Timely & efficient chewing & mashing Mastication Bolus Transport/ Delayed initiation of tongue motion Lingual Motion Oral Residue Residue collection on oral structures Location Tongue Initiation of Bolus head at posterior laryngeal surface of epiglottis Pharyngeal Swallow Additional Oral *OME was observed to be WNL. Impairment *DKS was observed to be slow with reduced strength, Observations ROM and coordination of structures. Speech was mild- moderately dysarthric with reduced volume. *Dentition natural and in good hygiene *Mastication observed with rotary chew pattern. *Delayed tongue movement initiation *Good bolus formation, control and AP transition. *Velopharyngeal closure was WNL. Pharyngeal Impairment Source: The Modified Barium Swallow Impairment Profile (MBSImP??) Soft Palate No bolus between soft palate & pharyngeal wall Elevation Laryngeal Elevation Comp.sup.move.thyroid cart.w/comp.approx.arytenoids to epiglot petiole Anterior Hyoid Complete anterior movement Excursion Epiglottic Movement No inversion Laryngeal Vestibular Incomplete; narrow column air/contrast in laryngeal Closure vestibule Pharyngeal Stripping Absent Wave Pharyngoesophageal Complete distention & complete duration; no obstruction Segment Opening of flow Tongue Base Narrow column of contrast/air betwn tongue base & post. Retraction pharyngeal wall Pharyngeal Residue Collection of residue within/on pharyngeal structures Location Diffuse Additional *Poor bolus control through the pharynx with NO Pharyngeal posterior wall stripping Impairment *No epiglottic inversion with liquids in upright Observations position - Chin tuck strategy not effective in aiding epiglottal inversion *Semi solid and solid trials induced inversion at 50% *Jason Aspiration x1 (silent) *No Laryngel penetration observed *No reflexive cough - cues for strong cough required *Cued additional swallows minimally, reduced pharyngeal residue - residue cleared at 70% with water wash/ swallow A/P View Textures Administered Trials Presented Thin Liquid via Cup (IDDSI 0) The IDDSI Framework Protocol: IDDSI.1 A/P View Observations Pharyngeal Complete Contraction Esophageal Clearance Complete clearance; esophageal coating Upright Position Vocal Fold Function Good Esophageal Function WFL Additional A-P Esophageal phase of swallow WFL Observations Clinical Impressions Dysphagia Type Oral,Pharyngeal Findings *Moderate to severe pharyngeal phase dysphagia secondary to reduced airway protection, no epiglottal inversion for liquids, inconsistent inversion for solids/semisolids, no bolus control through pharynx. *Pt is at risk for aspiration of large liquid boluses and/or sequential swallows as well as the pooled residue observed in the valeculla following solid/ semisolid trials *The results of this MBSS are similar to those obtained in 2023. However, there are reductions noted in pt's DKS, ROM and strength of oral structures. Speech now observed to be more dysarthric and tongue movement initiation is slower. *Pharyngeally, the chin tuck strategy is no longer effective in reducing aspiration risk *More pooling in the pharyngeal cavities was observed that in last MBSS (2023) *ST is recommended for base of tongue exercises and safe swallow strategy education. Recommend healthcare corporate account director attend therapy sessions *The results and recommendations of the MBSS were described to the pt and her caregiver while observing still pictures taken during the MBSS. Pt and caregiver expressed appreciation and indicated they understood. All questions were addressed. Rehabilitation Good Potential Patient Appropriate Yes: Base of tongue ex ; safe swallow strategies for Therapy Recommendations Diet Liquids Order Thin (IDDSI 0) Diet Order Easy to Chew (IDDSI 7) Comments Reduce mixed textured foods - friut with skin, salads, etc Additional Dietary Single Sips,No Straws Needs Aspiration Precautions Recommended Upright at 90 Degrees,Alternate Liquids/Solids,Frequent Precautions Rest Periods,Small Bites/Sips Treatment Plan Therapy Outpatient Speech Therapy Recommendations Therapy Strategy Sitting Upright (90 deg) Recommendations Additional Reduce distractions - i.e., talking, watchin TV, etc. Strategies swallow before talking Recommended Placement Outpatient Therapy Recommendation After Discharge
== END ==
PROVIDERS: Family Provider Physician Assistant; PCP Physician Assistant; Referring Provider Nurse Practitioner Family; Visit Provider Nurse Practitioner Family
DX: R13.10 Dysphagia, unspecified (principal)
CPT/HCPCS: 74230; 92611